=== PATIENT | female | born 1955 | race Caucasian/White ===

== ENCOUNTER 2016-04-13 11:29 | Emergency (ER) | payer BC ==
[~2016-04-13] VITALS: Ht 171.5 cm; Wt 82.5 kg
[~2016-04-13 11:29] MED LIST: MORP1TAB12 PO
[2016-04-13 11:36] VITALS: TEMP 37.1; Ht 171.5 cm; Wt 82.5 kg
--- NOTE | 2016-04-13 12:31 | EMERGENCY ROOM VISIT NOTE ---
History First contact with patient: 12:17 Chief Complaint: HEADACHE Stated Complaint: HEADACHE History of Present Illness The patient is a 60 year old female who presents to the Emergency Room with complaints of migraine. It started last night without preceding aura. Patient is on chronic pain medications, and has breakthrough pain medication, oxycodone for her headaches, but this only resolved her symptoms for ~30min. Currently she is experiencing throbbing in the occipital region radiating as a band tightening around her head and radiation of pain down the next and electrical pain shooting down her arms causing spasms. The right arm pain is worse than left. Her headaches is rated 9/10 severity currently. She is experiencing nausea but no vomiting. 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 Will repeat the therapy in 1 month The patient states that this headache is similar to her usual headaches. Review of Systems See HPI for pertinent positives and negatives. A total of ten systems were reviewed and were otherwise negative. Past Medical/Surgical History Medical Problems: (1) CHRONIC PAIN SYNDROME (2) HYPOTHYROIDISM NOS (3) MIGRAINE W AURA W/O INTRACT MGRN W/O STATUS MIGRAINOSUS Family History Diabetes mellitus Heart disease Hypertension Social History Smoking Status: Current Every Day Smoker Alcohol Use: none Drug Use: none Marital Status: Housing Status: lives alone Occupation Status: retired Current/Historical Medications Scheduled Estradiol (Estradiol), 1 PATCH TD WK Levothyroxine Sodium (Levothyroxine Sodium), 150 MCG PO QAM Morphine Sulfate (Morphine Sulfate Er), 30 MG PO TID Rosuvastatin Calcium (Crestor), 20 MG PO DAILY Varenicline (Chantix), 0.5 MG PO DAILY Venlafaxine Hcl (Effexor Extended Rel), 300 MG PO QAM Scheduled PRN Cyclobenzaprine Hcl (Flexeril), 5 MG PO HS PRN for Muscle Spasms Naproxen Sodium (Aleve), 440 MG PO DAILY PRN for Pain Oxycodone Hcl (Oxycodone Hcl), 7.5 MG PO Q3-4 HRS PRN for Breakthrough Pain Prednisone (Prednisone), 30-40 MG PO DAILY PRN for Headache Allergies Coded Allergies: No Known Allergies (Verified , 04/04/16) Physical Exam Vital Signs Date Time Temp Pulse Resp B/P Pulse Ox O2 Delivery O2 Flow Rate FiO2 04/13/16 13:33 98 18 153/83 94 04/13/16 11:36 37.1 98 18 153/83 94 Room Air Physical Exam GENERAL: alert, thin, sitting in bed, moderate acute distress, non-toxic HEAD: Normocephalic, atraumatic. Some sinus tenderness. EYES: PERRL, EOMI, normal conjunctiva OROPHARYNX: no exudate, no erythema, lips, buccal mucosa, and tongue normal and mucous membranes are dry NECK: supple, no nuchal rigidity, no adenopathy, non-tender LUNGS: Clear to auscultation. Normal chest wall mechanics, good air entry. No crepitations, crackles, or wheezes HEART: no murmurs, S1 normal and S2 normal CHEST: No reproducible tenderness. ABDOMEN: abdomen soft, non-tender, normo-active bowel sounds, no masses, no rebound or guarding. BACK: Back is symmetrical on inspection, no deformities, no midline tenderness, no CVA tenderness. SKIN: Warm, pink, dry. No erythema, rashes, or bruising. EXTREMITIES: Grossly normal. Moving all 4 limbs, strength 5/5. No pitting edema. Calves non tender. NEURO: Alert, Ox3. No focal deficits. Normal sensorium, cranial nerves II-XII grossly intact, normal speech. Kernig and Brudzinski negative PSYCH: Mood and affect appropriate. Medical Decision & Procedures Medications Administered Medications (Trade) Dose Ordered Sig/Aurora Route Start Time Stop Time Status Last Admin Dose Admin Morphine Sulfate (MoRPHine SULFATE INJ) 10 mg NOW STAT IM 04/13/16 12:40 04/13/16 12:51 DC 04/13/16 13:07 10 MG Dexamethasone Sodium Phosphate (Decadron Inj) 10 mg NOW STAT IM 04/13/16 12:40 04/13/16 12:51 DC 04/13/16 13:07 10 MG Ondansetron HCl (Zofran Odt) 4 mg ONE STAT PO 04/13/16 12:40 04/13/16 12:51 DC 04/13/16 13:08 4 MG Medical Decision 60 year old fe/male presented with acute headache, with symptoms consistent with her previous migraines The patient was evaluated in room A4. A complete history and physical exam was performed. Differentials include, but are not limited to; migraine, infection, intracranial hemorrhage, CVA, meningitis. She has a normal neurologic exam. She's had no fall or trauma. She has no fever or chills. She has nothing to suggest meningitis or encephalitis. She is not driving. I have reviewed her records and as such, patient was given usual regimen for symptom relief: morphine 10 mg IM, Decadron 10 mg IM and Zofran 4mg oral dissolving tablet She was discharged home and encouraged to return if: fever or chills, worsening symptoms, numbness or weakness, headaches different than normal, any new problems concerns. Impression Primary Impression: Chronic migraine Departure Information Referrals Britton Lopez M.D. (PCP) Patient Instructions A Signature Page, My [facility]
[2016-04-13] MEDS ORDERED: MoRPHine SULFATE 10 MG/ML CARP/VIAL IM STA (12:40)
[2016-04-13] MEDS ORDERED: ONDANSETRON 4MG OD TAB PO STA (12:40)
[2016-04-13] MEDS ORDERED: DEXAMETHASONE SOD INJ 10 MG/ML VIAL IM STA (12:40)
--- NOTE | 2016-04-13 13:21 | EMERGENCY ROOM VISIT NOTE ---
History Report prepared by Ryanne: Jaqui Sun Under the Supervision of: Dr. Tucker Cuello D.O. First contact with patient: 12:17 Chief Complaint: HEADACHE Stated Complaint: HEADACHE History of Present Illness The patient is a 60 year old female who presents to the Emergency Room with complaints of a constant occipital headache that started yesterday. She describes the headache as throbbing and states that it feels like her typical headaches. The pain radiates down into her neck and shoulders. She rates her discomfort as an 8/10 in severity. The patient is also experiencing nausea but denies vomiting along with aura, rhinorrhea, fevers, and numbness. She denies recent travel and recent trauma. The patient adds that she started Botox on March 31. Source of History: patient Onset: yesterday Position: head (occipital) Symptom Intensity: 8/10 Quality: other (throbbing) Timing: constant Associated Symptoms: + nausea, No fevers, No numbness, No vomiting Note: neck pain, shoulder pain, no aura, no rhinorrhea Review of Systems See HPI for pertinent positives & negatives. A total of 10 systems reviewed and were otherwise negative. Past Medical & Surgical Medical Problems: (1) CHRONIC PAIN SYNDROME (2) HYPOTHYROIDISM NOS (3) MIGRAINE W AURA W/O INTRACT MGRN W/O STATUS MIGRAINOSUS Family History Diabetes mellitus Heart disease Hypertension Social History Smoking Status: Current Every Day Smoker Alcohol Use: none Drug Use: none Marital Status: Housing Status: lives alone Occupation Status: retired Current/Historical Medications Scheduled Estradiol (Estradiol), 1 PATCH TD WK Levothyroxine Sodium (Levothyroxine Sodium), 150 MCG PO QAM Morphine Sulfate (Morphine Sulfate Er), 30 MG PO TID Rosuvastatin Calcium (Crestor), 20 MG PO DAILY Varenicline (Chantix), 0.5 MG PO DAILY Venlafaxine Hcl (Effexor Extended Rel), 300 MG PO QAM Scheduled PRN Cyclobenzaprine Hcl (Flexeril), 5 MG PO HS PRN for Muscle Spasms Naproxen Sodium (Aleve), 440 MG PO DAILY PRN for Pain Oxycodone Hcl (Oxycodone Hcl), 7.5 MG PO Q3-4 HRS PRN for Breakthrough Pain Prednisone (Prednisone), 30-40 MG PO DAILY PRN for Headache Allergies Coded Allergies: No Known Allergies (Verified , 04/04/16) Physical Exam Vital Signs Date Time Temp Pulse Resp B/P Pulse Ox O2 Delivery O2 Flow Rate FiO2 04/13/16 11:36 37.1 98 18 153/83 94 Room Air Physical Exam CONSTITUTIONAL/VITAL SIGNS: Reviewed / noted above. GENERAL: Non-toxic in appearance. INTEGUMENTARY: Warm, dry, and [place]. HEAD: Normocephalic. EYES: without scleral icterus or trauma. ENT/OROPHARYNX: clear and moist. LYMPHADENOPATHY/NECK: Is supple without lymphadenopathy or meningismus. RESPIRATORY: Lungs clear and equal. CARDIOVASCULAR: Regular rate and rhythm. GI/ABDOMEN: Soft and nontender. No organomegaly or pulsatile mass. No rebound or guarding. Normal bowel sounds. EXTREMITIES: Warm and well perfused. BACK: No CVA tenderness. NEUROLOGICAL: Intact without focal deficits. PSYCHIATRIC: normal affect. MUSCULOSKELETAL: Normally developed with good muscle tone. Medical Decision & Procedures Medications Administered Medications (Trade) Dose Ordered Sig/Aurora Route Start Time Stop Time Status Last Admin Dose Admin Morphine Sulfate (MoRPHine SULFATE INJ) 10 mg NOW STAT IM 04/13/16 12:40 04/13/16 12:51 DC 04/13/16 13:07 10 MG Dexamethasone Sodium Phosphate (Decadron Inj) 10 mg NOW STAT IM 04/13/16 12:40 04/13/16 12:51 DC 04/13/16 13:07 10 MG Ondansetron HCl (Zofran Odt) 4 mg ONE STAT PO 04/13/16 12:40 04/13/16 12:51 DC 04/13/16 13:08 4 MG ED Course 1220: The medical accounting clerk evaluated the patient at this time. We discussed her findings and potential treatment plans. 1240: Previous medical records were reviewed. The patient was evaluated in room A4. A complete history and physical examination was performed. 1305: On the resident's reevaluation, the patient is doing well. She discussed the results and findings with the patient. The patient verbalized agreement of the treatment plan. The patient was discharged home. Medical Decision Differential includes migraine headache, meningitis, sinusitis, CO exposure, ICH , SAH, infection, tumor, headache, sinus thrombosis, arterial dissection. This is a 60-year-old female who presents to the ED with his usual migraine headache. The patient denies any fevers or recent trauma. She was treated with her usual treatment as noted with morphine, Decadron and Zofran IM.. She was seen with resident. She is felt to be stable for discharge. Impression Primary Impression: Headache Scribe Attestation The scribe's documentation has been prepared under my direction and personally reviewed by me in its entirety. I confirm that the note above accurately reflects all work, treatment, procedures, and medical decision making performed by me. Departure Information Dispostion Home / Self-Care Referrals Britton Lopez M.D. (PCP) Forms HOME CARE DOCUMENTATION FORM, IMPORTANT VISIT INFORMATION Patient Instructions A Signature Page, My [facility]
[2016-04-13 13:33] VITALS: BP 153/83; PULSE 98; O2SAT 94
[2016-12-23] MEDS ORDERED: NAPR1TAB48 PO (10:34)
== END 2016-04-13 13:33 | disposition home or self-care (01) ==
LOC: C.EDB 11:30 → C.EDA 13:33
DX: G43.909 Migraine, unspecified, not intractable, without status migrainosus (principal); E03.9 Hypothyroidism, unspecified; F17.210 Nicotine dependence, cigarettes, uncomplicated; Z79.899 Other long term (current) drug therapy

== ENCOUNTER 2016-05-18 13:25 | Emergency (ER) | payer BC ==
[~2016-05-18] VITALS: Ht 172.7 cm; Wt 82.3 kg
[2016-05-18 13:30] VITALS: TEMP 36.5; Ht 172.7 cm; Wt 82.3 kg
[2016-05-18] MEDS ORDERED: CLMTP5 TD (13:49)
[2016-05-18] MEDS ORDERED: LEVO150T9 PO (13:49)
[2016-05-18] MEDS ORDERED: PRED20TA PO (13:50)
[2016-05-18] MEDS ORDERED: OXY/15 PO (13:50)
[2016-05-18] MEDS ORDERED: EFFSR150 PO (13:50)
[2016-05-18] MEDS ORDERED: NAPR1CAP12 PO (13:50)
[2016-05-18] MEDS ORDERED: CHN/1 PO (13:50)
[2016-05-18] MEDS ORDERED: MoRPHine SULFATE 10 MG/ML CARP/VIAL IM STA (13:53)
[2016-05-18] MEDS ORDERED: ONDANSETRON 4MG OD TAB PO STA (13:53)
[2016-05-18] MEDS ORDERED: DEXAMETHASONE SOD INJ 10 MG/ML VIAL IM ONE (14:00)
[2016-05-18 14:39] VITALS: BP 130/62; PULSE 76; O2SAT 96
[2016-05-18] MEDS ORDERED: ROSU20TA PO (14:57)
[2016-05-18] MEDS ORDERED: CYCL5TAB PO (14:57)
--- NOTE | 2016-05-18 20:09 | EMERGENCY ROOM VISIT NOTE ---
History Report prepared by Ryanne: Yoana Bautista Under the Supervision of: Dr. Ernesto Taylor M.D. First contact with patient: 13:45 Chief Complaint: HEADACHE Stated Complaint: MIGRAINE TIMES TWO DAYS History of Present Illness The patient is a 61 year old female who presents to the Emergency Room with complaints of a persistent migraine headache that began 2 days ago. The pain is located in the occipital region and is vice like. It extends down her arms. She also complains of nausea. She denies any sensitivity to smells, noise, or light. The patient has a history of migraine headaches. Her current pain feels typical of her migraine headaches. The patient received Botox On March 31 for her migraines which did seem to help her migraines, although she can tell that it is wearing off and is scheduled for another injection in June. She denies any recent head trauma. Denies chest pain, shortness of breath, vomiting , abdominal pain, or other complaints. Source of History: patient Onset: 2 days ago Position: head (occipital) Quality: other (migraine) Timing: other (persistent) Associated Symptoms: + nausea, No SOB, No abdominal pain, No chest pain, No vomiting Review of Systems See HPI for pertinent positives & negatives. A total of 10 systems reviewed and were otherwise negative. Past Medical & Surgical Medical Problems: (1) CHRONIC PAIN SYNDROME (2) HYPOTHYROIDISM NOS (3) MIGRAINE W AURA W/O INTRACT MGRN W/O STATUS MIGRAINOSUS Family History Diabetes mellitus Heart disease Hypertension Social History Smoking Status: Current Every Day Smoker Alcohol Use: none Drug Use: none Marital Status: Housing Status: lives alone Occupation Status: retired Current/Historical Medications Scheduled Estradiol (Estradiol), 1 PATCH TD WK Levothyroxine Sodium (Levothyroxine Sodium), 150 MCG PO QAM Morphine Sulfate (Morphine Sulfate Er), 30 MG PO TID Rosuvastatin Calcium (Crestor), 20 MG PO DAILY Varenicline (Chantix), 0.5 MG PO DAILY Venlafaxine Hcl (Effexor Extended Rel), 300 MG PO QAM Scheduled PRN Cyclobenzaprine Hcl (Flexeril), 5 MG PO HS PRN for Muscle Spasms Naproxen Sodium (Aleve), 440 MG PO DAILY PRN for Pain Oxycodone Hcl (Oxycodone Hcl), 7.5 MG PO Q3-4 HRS PRN for Breakthrough Pain Prednisone (Prednisone), 30-40 MG PO DAILY PRN for Headache Allergies Coded Allergies: No Known Allergies (Verified , 05/18/16) Physical Exam Vital Signs Date Time Temp Pulse Resp B/P Pulse Ox O2 Delivery O2 Flow Rate FiO2 05/18/16 14:39 76 20 130/62 96 05/18/16 13:30 36.5 93 18 128/79 95 Room Air Physical Exam Constitutional: Vital signs reviewed. Eyes: Pupils are equal round reactive to light. Conjunctiva are noninjected. ENT: Pharynx is clear without erythema or exudate. Mucous membranes are moist. Neck supple without meningeal signs. Respiratory: Clear to auscultation bilaterally. Breath sounds are equal bilaterally. Cardiovascular: Regular rate and rhythm. No rubs or gallops. GI: Soft, nondistended and nontender. Bowel sounds are present. Musculoskeletal: No peripheral edema. Integumentary: No cyanosis. Neurological: The patient is awake and alert. Cranial nerves II-XII are intact. Motor is 5 out of 5 all extremities. Sensation is intact to light touch all extremities. Normal speech. No pronator drift. Psychiatric: Normal affect. Medical Decision & Procedures Medications Administered Medications (Trade) Dose Ordered Sig/Aurora Route Start Time Stop Time Status Last Admin Dose Admin Morphine Sulfate (MoRPHine SULFATE INJ) 10 mg NOW STAT IM 05/18/16 13:53 05/18/16 13:55 DC 05/18/16 14:15 10 MG Dexamethasone Sodium Phosphate (Decadron Inj) 10 mg NOW ONCE IM 05/18/16 14:00 05/18/16 14:01 DC 05/18/16 14:16 10 MG Ondansetron HCl (Zofran Odt) 4 mg ONE STAT PO 05/18/16 13:53 05/18/16 13:55 DC 05/18/16 13:53 4 MG ED Course 1345: The patient was evaluated in room D2. A complete history and physical exam was performed. She requested to be discharged immediately after receiving her medications. 1353: Ordered Zofran Odt 4 mg PO, Morphine Sulfate 10 mg IM. 1400: Ordered Decadron Inj 10 mg IM. Medical Decision This is a 61-year-old female who presents with a migraine headache. I did perform a limited focused review of portions of the patient's old chart on the electronic medical record. She was last here April 13 for a headache and treated with Morphine, Decadron, and Zofran. I did evaluate the patient as noted above. The patient is presenting with a headache which she states is identical to her previous migraine headaches. She has not febrile. She has no focal neurologic deficits. She was treated with IM morphine, Decadron and given Zofran ODT. She did wish to be discharged afterwards and will follow up with her doctor. She was given return instructions as outlined below. Impression Primary Impression: Headache Scribe Attestation The scribe's documentation has been prepared under my direct and personally reviewed by me in its entirety. I confirm that the note above accurately reflects all work, treatment, procedures, and medical decision making performed by me. Departure Information Dispostion Home / Self-Care Referrals Britton Lopez M.D. (PCP) Patient Instructions ED Headache Migraine, [facility] Additional Instructions You have been examined and treated today on an emergency basis only. This is not a substitute for, or an effort to provide, complete comprehensive medical care. It is impossible to recognize and treat all injuries or illnesses in a single emergency department visit. It is therefore important that you follow up closely with your physician. Call as soon as possible for an appointment. Return for worsening symptoms or if you develop fever, numbness or weakness on one side of your body, difficulties with your speech or walking, or any other concerning symptoms. Problem Qualifiers Primary Impression: Headache Headache type: unspecified Headache chronicity pattern: acute headache Intractability: not intractable Qualified Codes: R51 - Headache
== END 2016-05-18 14:40 | disposition home or self-care (01) ==
LOC: C.EDB 13:27 → C.EDD 14:40
DX: R51 Headache (principal); G89.4 Chronic pain syndrome; E03.9 Hypothyroidism, unspecified; Z83.3 Family history of diabetes mellitus; Z82.49 Family history of ischemic heart disease and other diseases of the circulatory system

== ENCOUNTER 2016-06-06 09:05 | Emergency (ER) | payer BC ==
[~2016-06-06] VITALS: Ht 172.7 cm; Wt 84.1 kg
[~2016-06-06 09:05] MED LIST changes: +CHN/1 PO; +CLMTP5 TD; +CYCL5TAB PO; +EFFSR150 PO; +LEVO150T9 PO; +NAPR1CAP12 PO; +OXY/15 PO; +PRED20TA PO; +ROSU20TA PO
[2016-06-06 09:18] VITALS: TEMP 37; Ht 172.7 cm; Wt 84.1 kg
[2016-06-06] MEDS ORDERED: MoRPHine SULFATE 10 MG/ML CARP/VIAL IM STA (10:00)
[2016-06-06] MEDS ORDERED: DEXAMETHASONE SOD INJ 10 MG/ML VIAL IM ONE (10:00)
[2016-06-06] MEDS ORDERED: ONDANSETRON 4MG OD TAB PO STA (10:00)
[2016-06-06 11:16] VITALS: BP 146/87; PULSE 76; O2SAT 98
--- NOTE | 2016-06-06 15:15 | EMERGENCY ROOM VISIT NOTE ---
History Report prepared by Ryanne: Soniya Barros Under the Supervision of: Dr. Kishan Nevarez M.D. 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 The patient currently rates her pain as an 8/10 in severity. The patient states that she has recurrent headaches. She states that the headaches are occipital but they radiate down into her arms. She states the headaches are due to past neck trauma. She associates nausea with her symptoms. She denies any sensitivity to light, vomiting, or fevers with her symptoms. She states that she has taken prednisone for the last 3 days. The patient states that she had Botox done to treat her headaches and it helped her pain for several weeks but she is not able to receive another treatment fo awhile. Source of History: patient Onset: 2 days BUSINESS ECONOMIST Position: head Symptom Intensity: 8/10 Timing: other (persistent) Associated Symptoms: + nausea, No fevers, No vomiting Note: Patient denies sensitivity to light Review of Systems See HPI for pertinent positives & negatives. A total of 10 systems reviewed and were otherwise negative. Past Medical & Surgical Medical Problems: (1) CHRONIC PAIN SYNDROME (2) HYPOTHYROIDISM NOS (3) MIGRAINE W AURA W/O INTRACT MGRN W/O STATUS MIGRAINOSUS Family History Diabetes mellitus Heart disease Hypertension Social History Smoking Status: Current Every Day Smoker Alcohol Use: none Drug Use: none Marital Status: Housing Status: lives alone Occupation Status: retired Current/Historical Medications Scheduled Estradiol (Estradiol), 1 PATCH TD WK Levothyroxine Sodium (Levothyroxine Sodium), 150 MCG PO QAM Morphine Sulfate (Morphine Sulfate Er), 30 MG PO TID Rosuvastatin Calcium (Crestor), 20 MG PO DAILY Varenicline (Chantix), 0.5 MG PO DAILY Venlafaxine Hcl (Effexor Extended Rel), 300 MG PO QAM Scheduled PRN Cyclobenzaprine Hcl (Flexeril), 5 MG PO HS PRN for Muscle Spasms Naproxen Sodium (Aleve), 440 MG PO DAILY PRN for Pain Oxycodone Hcl (Oxycodone Hcl), 7.5 MG PO Q3-4 HRS PRN for Breakthrough Pain Prednisone (Prednisone), 30-40 MG PO DAILY PRN for Headache Allergies Coded Allergies: No Known Allergies (Verified , 06/06/16) Physical Exam Vital Signs Date Time Temp Pulse Resp B/P Pulse Ox O2 Delivery O2 Flow Rate FiO2 06/06/16 11:16 76 16 146/87 98 06/06/16 09:18 37.0 92 17 143/81 96 Room Air Physical Exam GENERAL: Patient is in no acute distress. HEENT: No acute trauma, normocephalic atraumatic, mucous membranes moist, no nasal congestion, no scleral icterus. Pupils equal and reactive to light. NECK: No stridor, no adenopathy, no meningismus, trachea is midline. LUNGS: Clear to auscultation bilaterally, no wheeze, no rhonchi, breath sounds equal. HEART: Without murmurs gallops or rubs, regular rate and rhythm. ABDOMEN: Soft, nontender, bowel sounds positive, no hernias, no peritonitis. EXTREMITIES: No cyanosis or edema, full range of motion of all the joints without pain or difficulty, no signs for acute trauma. NEUROLOGIC: Oriented x 3, no acute motor or sensory deficits, no focal weakness. No cerebellar deficits. SKIN: No rash, no jaundice, no diaphoresis Medical Decision & Procedures Medications Administered Medications (Trade) Dose Ordered Sig/Aurora Route Start Time Stop Time Status Last Admin Dose Admin Morphine Sulfate (MoRPHine SULFATE INJ) 10 mg NOW STAT IM 06/06/16 10:00 06/06/16 10:02 DC 06/06/16 11:02 10 MG Ondansetron HCl (Zofran Odt) 4 mg NOW STAT PO 06/06/16 10:00 06/06/16 10:02 DC 06/06/16 11:02 4 MG Dexamethasone Sodium Phosphate (Decadron Inj) 10 mg NOW ONCE IM 06/06/16 10:00 06/06/16 10:02 DC 06/06/16 11:02 10 MG ED Course 0958: The patient was evaluated in room C4. A complete history and physical exam was performed. 1000: Ordered Decadron Inj 10 mg IM, Zofran Odt 4 mg PO, Morphine Sulfate 10 mg IM. 1110: Reevaluated the patient. Discussed results and discharge instructions: She verbalized understanding and agreement. The patient is ready for discharge. Medical Decision The patient is a 61 year old female who presents to the ED with complaints of a headache. Differential diagnoses considered include migraine headache, tension headache, meningitis, dehydration, head trauma, intracranial bleeding, neuralgia. The patient presents with a headache that she describes as typical for her. She has these posterior headaches that are from her chronic neck pain. The patient has been seen in this ER before for similar complaints. She has not suffered head trauma, there has been no fever. On exam, she is not febrile and there is no meningismus. Patient received IM morphine, IM Decadron and oral Zofran. She has received this in the past with success. She was discharged home. Rest and hydration were encouraged. Impression Primary Impression: Headache Scribe Attestation The scribe's documentation has been prepared under my direction and personally reviewed by me in its entirety. I confirm that the note above accurately reflects all work, treatment, procedures, and medical decision making performed by me. Departure Information Dispostion Home / Self-Care Referrals Britton Lopez M.D. (PCP) Forms HOME CARE DOCUMENTATION FORM, IMPORTANT VISIT INFORMATION Patient Instructions My [facility] Additional Instructions rest fluids sleep return if worsening
== END 2016-06-06 11:17 | disposition home or self-care (01) ==
LOC: C.EDB 09:06 → C.EDC 11:17
DX: R51 Headache (principal); R11.0 Nausea; E03.9 Hypothyroidism, unspecified; F17.210 Nicotine dependence, cigarettes, uncomplicated; Z79.899 Other long term (current) drug therapy

== ENCOUNTER 2016-06-22 16:47 | Emergency (ER) | payer BC ==
[~2016-06-22] VITALS: Ht 172.7 cm; Wt 83.8 kg
[2016-06-22 17:05] VITALS: TEMP 37.1; Ht 172.7 cm; Wt 83.8 kg
[2016-06-22] MEDS ORDERED: MoRPHine SULFATE 10 MG/ML CARP/VIAL IM STA (18:09)
--- NOTE | 2016-06-22 18:13 | EMERGENCY ROOM VISIT NOTE ---
ED Visit Note First contact with patient: 17:32 CHIEF COMPLAINT: Migraine headache HISTORY OF PRESENT ILLNESS: This 61-year-old female patient presented to the emergency department ambulatory with a gradual onset of a severe generalized headache that started yesterday. The patient states the migraine is similar to their typical migraines. She states that she typically has migraines with any changes in the barometric pressure. There has been associated photophobia, phonophobia, nausea and vomiting. The patient denies fever or chills recently, and there is no weakness or numbness of the extremities. There is no difficulty with speech or vision. No trauma to the head and no neck pain. The pain is severe, constant, and it is slowly increasing in severity. The patient rates the pain as throbbing and 9/10. The patient has taken oxycodone without relief. This is not the worst headache of the life and is similar to previous migraines. Previous imaging studies of the brain have been normal. REVIEW OF SYSTEMS: A review of systems was performed with positives and pertinent negatives listed in the history of present illness. All other systems were reviewed and are negative. ALLERGIES: No known drug allergies MEDICATIONS: See med list PMH: Migraine headaches SOCIAL HISTORY: The patient lives locally with family. PHYSICAL EXAM: Vital Signs: Reviewed Nurse's notes, vital signs stable. GENERAL : This is a 61-year-old female, who appears in pain, but non toxic in appearance and in no acute distress. MENTAL STATUS: Alert, oriented, and coherent. HEENT: Normocephalic. PERRLA. EOMI. Nares patent without nuchal rigidity. Tympanic membranes pearly carr without erythema or effusion bilaterally. Mucous membranes moist. NECK: Supple, no nuchal rigidity, nontender, no lymphadenopathy. HEART: Regular rhythm and normal rate without murmurs, ectopy, gallops, or rubs. LUNGS: Clear to auscultation bilaterally without wheezes, rales or rhonchi. No dullness to percussion. No accessory muscle use. No retractions. SKIN: Normal. NEUROLOGICAL: Pupils are round, equal and react to light. The optic fundi are normal and the discs are flat. The patient moves all extremities well and the gait is normal. EMERGENCY DEPARTMENT COURSE: I examined the patient. The patient has a history of migraines and states this is similar to her typical migraine headache. The patient was given 10 mg morphine, 4 mg Zofran and 10 mg Decadron per their usual protocol. The differential diagnosis includes acute intracranial bleed, meningitis, encephalitis, mass or mass effect, sinusitis, infection, tumor, headache, temporal arteritis and carbon monoxide exposure, and migraine. The patient was discharged home in stable condition with her driving. DIAGNOSIS: Migraine headache Problem List Medical Problems: (1) CHRONIC PAIN SYNDROME Status: Chronic (2) HYPOTHYROIDISM NOS Status: Chronic (3) MIGRAINE W AURA W/O INTRACT MGRN W/O STATUS MIGRAINOSUS Status: Chronic Current/Historical Medications Scheduled Estradiol (Estradiol), 1 PATCH TD WK Levothyroxine Sodium (Levothyroxine Sodium), 150 MCG PO QAM Morphine Sulfate (Morphine Sulfate Er), 30 MG PO TID Rosuvastatin Calcium (Crestor), 20 MG PO DAILY Varenicline (Chantix), 0.5 MG PO DAILY Venlafaxine Hcl (Effexor Extended Rel), 300 MG PO QAM Scheduled PRN Cyclobenzaprine Hcl (Flexeril), 5 MG PO HS PRN for Muscle Spasms Naproxen Sodium (Aleve), 440 MG PO DAILY PRN for Pain Oxycodone Hcl (Oxycodone Hcl), 7.5 MG PO Q3-4 HRS PRN for Breakthrough Pain Prednisone (Prednisone), 30-40 MG PO DAILY PRN for Headache Allergies Coded Allergies: No Known Allergies (Verified , 06/06/16) Vital Signs Date Time Temp Pulse Resp B/P Pulse Ox O2 Delivery O2 Flow Rate FiO2 06/22/16 18:48 80 18 132/54 94 06/22/16 17:05 37.1 95 16 133/80 99 Room Air Medications Administered Medications (Trade) Dose Ordered Sig/Aurora Route Start Time Stop Time Status Last Admin Dose Admin Morphine Sulfate (MoRPHine SULFATE INJ) 10 mg NOW STAT IM 06/22/16 18:09 06/22/16 18:11 DC 06/22/16 18:43 10 MG Dexamethasone Sodium Phosphate (Decadron Inj) 10 mg NOW ONCE IM 06/22/16 18:15 06/22/16 18:16 DC 06/22/16 18:45 10 MG Ondansetron HCl (Zofran Odt) 4 mg ONE ONCE PO 06/22/16 18:15 06/22/16 18:16 DC 06/22/16 18:43 4 MG Departure Information Impression Primary Impression: Migraine Dispostion Home / Self-Care Condition GOOD Referrals Britton Lopez M.D. (PCP) Patient Instructions My [facility] Additional Instructions You have been treated in the Emergency Department for a Headache. You have received pain medicine in the emergency department which impairs your ability to operate a vehicle. It is illegal for you to drive after receiving these medicines. You should schedule a follow-up appointment in 2-3 days with your Primary Care Provider or established Neurologist for further evaluation and treatment of your Headache. Return to the Emergency Department if your current symptoms worsen despite treatment course outlined above, or if you develop any of the following symptoms : intractable pain despite aforementioned treatment course, visual disturbances , loss of vision, unilateral weakness or facial drooping, slurring of speech, loss of coordination, or loss of consciousness. Problem Qualifiers Primary Impression: Migraine Migraine type: unspecified Status migrainosus presence: without status migrainosus Intractability: not intractable Qualified Codes: G43.909 - Migraine, unspecified, not intractable, without status migrainosus
[2016-06-22] MEDS ORDERED: DEXAMETHASONE SOD INJ 4 MG/ML VIAL IM ONE (18:15)
[2016-06-22] MEDS ORDERED: ONDANSETRON 4MG OD TAB PO ONE (18:15)
--- NOTE | 2016-06-22 18:26 | EMERGENCY ROOM VISIT NOTE ---
ED Visit Note First contact with patient: 17:32 I have seen and examined this patient with Lizzeth Moreno and generally agree with the treatment plan as discussed. Problem List Medical Problems: (1) CHRONIC PAIN SYNDROME Status: Chronic (2) HYPOTHYROIDISM NOS Status: Chronic (3) MIGRAINE W AURA W/O INTRACT MGRN W/O STATUS MIGRAINOSUS Status: Chronic Current/Historical Medications Scheduled Estradiol (Estradiol), 1 PATCH TD WK Levothyroxine Sodium (Levothyroxine Sodium), 150 MCG PO QAM Morphine Sulfate (Morphine Sulfate Er), 30 MG PO TID Rosuvastatin Calcium (Crestor), 20 MG PO DAILY Varenicline (Chantix), 0.5 MG PO DAILY Venlafaxine Hcl (Effexor Extended Rel), 300 MG PO QAM Scheduled PRN Cyclobenzaprine Hcl (Flexeril), 5 MG PO HS PRN for Muscle Spasms Naproxen Sodium (Aleve), 440 MG PO DAILY PRN for Pain Oxycodone Hcl (Oxycodone Hcl), 7.5 MG PO Q3-4 HRS PRN for Breakthrough Pain Prednisone (Prednisone), 30-40 MG PO DAILY PRN for Headache Allergies Coded Allergies: No Known Allergies (Verified , 06/06/16) Vital Signs Date Time Temp Pulse Resp B/P Pulse Ox O2 Delivery O2 Flow Rate FiO2 06/22/16 17:05 37.1 95 16 133/80 99 Room Air Departure Information Dispostion Home / Self-Care Condition GOOD Referrals Britton Lopez M.D. (PCP) Forms HOME CARE DOCUMENTATION FORM, IMPORTANT VISIT INFORMATION Patient Instructions My [facility] Additional Instructions You have been treated in the Emergency Department for a Headache. You have received pain medicine in the emergency department which impairs your ability to operate a vehicle. It is illegal for you to drive after receiving these medicines. You should schedule a follow-up appointment in 2-3 days with your Primary Care Provider or established Neurologist for further evaluation and treatment of your Headache. Return to the Emergency Department if your current symptoms worsen despite treatment course outlined above, or if you develop any of the following symptoms : intractable pain despite aforementioned treatment course, visual disturbances , loss of vision, unilateral weakness or facial drooping, slurring of speech, loss of coordination, or loss of consciousness.
[2016-06-22 18:48] VITALS: BP 132/54; PULSE 80; O2SAT 94
== END 2016-06-22 18:49 | disposition home or self-care (01) ==
LOC: C.EDB 16:48 → C.EDD 18:49
DX: G43.909 Migraine, unspecified, not intractable, without status migrainosus (principal); E03.9 Hypothyroidism, unspecified; G89.4 Chronic pain syndrome; Z79.899 Other long term (current) drug therapy

== ENCOUNTER 2016-07-05 12:04 | Emergency (ER) | payer BC ==
[~2016-07-05] VITALS: Ht 172.7 cm; Wt 83.6 kg
[2016-07-05 12:11] VITALS: TEMP 36.9; Ht 172.7 cm; Wt 83.6 kg
[2016-07-05] MEDS ORDERED: ONDANSETRON 2MG ODT PO STA (12:35)
[2016-07-05] MEDS ORDERED: MoRPHine SULFATE 10 MG/ML CARP/VIAL IM STA (12:35)
[2016-07-05] MEDS ORDERED: DEXAMETHASONE SOD INJ 10 MG/ML VIAL IM STA (12:35)
--- NOTE | 2016-07-05 12:36 | EMERGENCY ROOM VISIT NOTE ---
History Report prepared by Ryanne: Camille Gómez Under the Supervision of: Dr. Mohamud Lee M.D. First contact with patient: 12:18 Chief Complaint: HEADACHE Stated Complaint: HEADACHE FOR 3 DAYS History of Present Illness The patient is a 61 year old female who presents to the Emergency Room with complaints of a persistent headache with onset three days ago. She rates her pain as an 8/10. The patient has a history of migraines and states that this headache is consistent with her usual migraines. The patient states that the change in weather has caused her migraine, as it usually does. The pain is occipital and is vice-like and goes down into her arms. The patient states that she is trying Botox for treatment of her migraines. She denies fever, visual changes. Source of History: patient Onset: 3 days ago Position: head Symptom Intensity: 8/10 Quality: other (headache) Timing: other (persistent) Associated Symptoms: No fevers Note: She denies visual changes. Review of Systems See HPI for pertinent positives & negatives. A total of 10 systems reviewed and were otherwise negative. Past Medical & Surgical Medical Problems: (1) CHRONIC PAIN SYNDROME (2) HYPOTHYROIDISM NOS (3) MIGRAINE W AURA W/O INTRACT MGRN W/O STATUS MIGRAINOSUS Old medical records were reviewed. Nurse's notes were reviewed and I agree with. Family History Diabetes mellitus Heart disease Hypertension Social History Smoking Status: Current Every Day Smoker Alcohol Use: none Drug Use: none Marital Status: Housing Status: lives alone Occupation Status: retired Current/Historical Medications Scheduled Estradiol (Estradiol), 1 PATCH TD WK Levothyroxine Sodium (Levothyroxine Sodium), 150 MCG PO QAM Morphine Sulfate (Morphine Sulfate Er), 30 MG PO TID Rosuvastatin Calcium (Crestor), 20 MG PO DAILY Varenicline (Chantix), 0.5 MG PO DAILY Venlafaxine Hcl (Effexor Extended Rel), 300 MG PO QAM Scheduled PRN Cyclobenzaprine Hcl (Flexeril), 5 MG PO HS PRN for Muscle Spasms Naproxen Sodium (Aleve), 440 MG PO DAILY PRN for Pain Oxycodone Hcl (Oxycodone Hcl), 7.5 MG PO Q3-4 HRS PRN for Breakthrough Pain Prednisone (Prednisone), 30-40 MG PO DAILY PRN for Headache Allergies Coded Allergies: No Known Allergies (Verified , 07/05/16) Physical Exam Vital Signs Date Time Temp Pulse Resp B/P Pulse Ox O2 Delivery O2 Flow Rate FiO2 07/05/16 12:54 102 18 154/85 95 07/05/16 12:11 36.9 107 18 139/86 95 Room Air Physical Exam General: Non ill appearing middle age female in no acute distress. HEENT: Normal cephalic atraumatic. Pupils are equal round and reactive to light. Extraocular movements are intact. Oropharynx is pink with moist mucous membranes. No swelling of the mouth lips or tongue. Neck: Supple with a midline trachea. No meningeal signs or stiffness, no JVD or bruits. No Stridor. Chest: Clear to auscultation bilaterally. No wheezes or rhonchi. No increased work of breathing. Heart: regular rate and rhythm. Abdomen: Soft nontender, nondistended without rebound guarding or rigidity. Extremities: No cyanosis clubbing or edema. No calf tenderness or assymetry Spine/Back. Non tender to palpation. No CVA tenderness Skin: Good turgor without rashes. Neurologic exam: Cranial nerves two through 12 are intact. Motor and sensation are intact and symmetrical throughout. Medical Decision & Procedures Medications Administered Medications (Trade) Dose Ordered Sig/Aurora Route Start Time Stop Time Status Last Admin Dose Admin Dexamethasone Sodium Phosphate (Decadron Inj) 10 mg NOW STAT IM 07/05/16 12:35 07/05/16 12:38 DC 07/05/16 12:40 10 MG Morphine Sulfate (MoRPHine SULFATE INJ) 10 mg NOW STAT IM 07/05/16 12:35 07/05/16 12:38 DC 07/05/16 12:41 10 MG Ondansetron HCl (Zofran Odt) 4 mg NOW STAT PO 07/05/16 12:35 07/05/16 12:38 DC 07/05/16 12:41 4 MG ED Course 1222: Past medical records reviewed. The patient was evaluated in room D6, and a complete history and physical examination were performed. 1235: Zofran 4 mg PO, Morphine Sulfate 10 mg IM, Decadron 10 mg IM 1250: Upon reevaluation, the patient is feeling better. I discussed the results and treatment plan with the patient. She verbalized agreement of the treatment plan. The patient was discharged home. Medical Decision Differentials include, but are not limited to; migraine, intracranial process, electrolyte or metabolic abnormality. This patient comes in as described above. She is having a headache consistent with her previous migraines. I do know her well from previous visits. She has a normal neurologic exam. She has had no trauma . She is afebrile. She has nothing to suggest this is anything but her typical migraine, specifically there is nothing to suggest meningitis, subarachnoid hemorrhage or toxicologic process. She is not driving. I did give her her typical shot which includes morphine 10 mg IM, Decadron 10 mg, IM as well as Zofran 4 mg oral dissolving tablet. She will be discharged home and return if: Worsening symptoms, headache different then typical, any new problems or concerns. Impression Primary Impression: Migraine Scribe Attestation The scribe's documentation has been prepared under my direction and personally reviewed by me in its entirety. I confirm that the note above accurately reflects all work, treatment, procedures, and medical decision making performed by me. Departure Information Dispostion Home / Self-Care Referrals Britton Lopez M.D. (PCP) Forms HOME CARE DOCUMENTATION FORM, IMPORTANT VISIT INFORMATION Patient Instructions My [facility] Additional Instructions Rest. Return if: Headaches different than typical, worsening of symptoms, fever or chills, numbness or weakness, any new problems or concerns Follow-up with your doctor this week for recheck
[2016-07-05 12:54] VITALS: BP 154/85; PULSE 102; O2SAT 95
== END 2016-07-05 12:55 | disposition home or self-care (01) ==
LOC: C.EDB 12:05 → C.EDD 12:55
DX: G43.909 Migraine, unspecified, not intractable, without status migrainosus (principal); G89.4 Chronic pain syndrome; E03.9 Hypothyroidism, unspecified; F17.200 Nicotine dependence, unspecified, uncomplicated; Z83.3 Family history of diabetes mellitus; Z82.49 Family history of ischemic heart disease and other diseases of the circulatory system

== ENCOUNTER 2016-08-09 09:28 | Emergency (ER) | payer BC ==
[~2016-08-09] VITALS: Ht 172.7 cm; Wt 81.6 kg
[2016-08-09 09:45] VITALS: TEMP 36.8; Ht 172.7 cm; Wt 81.6 kg
[2016-08-09] MEDS ORDERED: MoRPHine SULFATE 10 MG/ML CARP/VIAL IM STA (09:55)
--- NOTE | 2016-08-09 09:58 | EMERGENCY ROOM VISIT NOTE ---
ED Visit Note First contact with patient: 09:49 CHIEF COMPLAINT: Migraine headache HISTORY OF PRESENT ILLNESS: This 61-year-old female patient presented to the emergency department with a gradual onset of a severe generalized headache that started 3 days ago. There has been associated photophobia, phonophobia, nausea and vomiting. The patient denies fever or chills recently, and there is no weakness or numbness of the extremities. There is no difficulty with speech or vision. No trauma to the head and no neck pain. The pain is severe, constant, and it is slowly increasing in severity. The patient rates the pain as sharp and 8/10. The patient has taken her usual medications. This is not the worst headache of the life and is similar to previous migraines. Previous imaging studies of the brain (CT scans) have been normal. The patient states she is doing well with Botox injections. REVIEW OF SYSTEMS: An 8 system review of systems was completed with positives and pertinent negatives listed in the HPI. ALLERGIES: No known drug allergies MEDICATIONS: Unchanged from previous PMH: Migraines, hypothyroidism, hyperlipidemia SOCIAL HISTORY: The patient lives locally. She is a smoker PHYSICAL EXAM: Vital Signs: Reviewed Nurse's notes, vital signs stable. MENTAL STATUS: Alert, oriented, and coherent. In great distress from the headache. NECK : Supple, no nuchal rigidity, nontender, no lymphadenopathy. HEART: Regular rhythm and normal rate without murmurs, ectopy, gallops, or rubs. SKIN: Normal. NEUROLOGICAL: Pupils are round, equal and react to light. The optic fundi are normal and the discs are flat. EOMs are full and there is no nystagmus. The patient moves all extremities well and the gait is normal. EMERGENCY DEPARTMENT COURSE: I examined the patient. The patient is well-known to the emergency department. She is on a 2 shot per month treatment protocol. This is her first visit for this month. The patient was given 10 mg IM morphine , 10 mg IM Decadron and 4 mg oral Zofran with relief of their pain. The differential diagnosis includes acute intracranial bleed, meningitis, encephalitis, mass or mass effect, sinusitis, infection, tumor, headache, temporal arteritis and carbon monoxide exposure, and migraine. 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 DIAGNOSIS: Migraine headache DISCHARGE INSTRUCTIONS & TREATMENT: Rest at home, resume prescription medications. See your own doctor in follow-up. Problem List Medical Problems: (1) CHRONIC PAIN SYNDROME Status: Chronic (2) HYPOTHYROIDISM NOS Status: Chronic (3) MIGRAINE W AURA W/O INTRACT MGRN W/O STATUS MIGRAINOSUS Status: Chronic Current/Historical Medications Scheduled Estradiol (Estradiol), 1 PATCH TD WK Levothyroxine Sodium (Levothyroxine Sodium), 150 MCG PO QAM Morphine Sulfate (Morphine Sulfate Er), 30 MG PO TID Rosuvastatin Calcium (Crestor), 20 MG PO DAILY Venlafaxine Hcl (Effexor Extended Rel), 300 MG PO QAM Scheduled PRN Cyclobenzaprine Hcl (Flexeril), 5 MG PO HS PRN for Muscle Spasms Oxycodone Hcl (Oxycodone Hcl), 7.5 MG PO Q3-4 HRS PRN for Breakthrough Pain Allergies Coded Allergies: No Known Allergies (Verified , 08/09/16) Vital Signs Date Time Temp Pulse Resp B/P Pulse Ox O2 Delivery O2 Flow Rate FiO2 08/09/16 10:12 90 147/94 96 08/09/16 09:45 36.8 93 18 156/93 96 Room Air Medications Administered Medications (Trade) Dose Ordered Sig/Aurora Route Start Time Stop Time Status Last Admin Dose Admin Morphine Sulfate (MoRPHine SULFATE INJ) 10 mg NOW STAT IM 08/09/16 09:55 08/09/16 09:57 DC 08/09/16 10:06 10 MG Dexamethasone Sodium Phosphate (Decadron Inj) 10 mg NOW ONCE IM 08/09/16 10:00 08/09/16 10:01 DC 08/09/16 10:07 10 MG Ondansetron HCl (Zofran Odt) 4 mg ONE ONCE PO 08/09/16 10:00 08/09/16 10:01 DC 08/09/16 10:00 4 MG Departure Information Impression Primary Impression: Migraine Dispostion Home / Self-Care Condition GOOD Referrals Britton Lopez M.D. (PCP) Patient Instructions My [facility] Additional Instructions Rest at home, resume prescription medications. See your own doctor in follow-up.
[2016-08-09] MEDS ORDERED: DEXAMETHASONE SOD INJ 10 MG/ML VIAL IM ONE (10:00)
[2016-08-09] MEDS ORDERED: ONDANSETRON 4MG OD TAB PO ONE (10:00)
[2016-08-09 10:12] VITALS: BP 147/94; PULSE 90; O2SAT 96
[2016-12-23] MEDS ORDERED: NAPR1TAB48 PO (10:34)
== END 2016-08-09 10:13 | disposition home or self-care (01) ==
LOC: C.EDB 09:30 → C.EDC 10:13
DX: G43.909 Migraine, unspecified, not intractable, without status migrainosus (principal); G89.4 Chronic pain syndrome; E03.9 Hypothyroidism, unspecified; E78.5 Hyperlipidemia, unspecified; F17.210 Nicotine dependence, cigarettes, uncomplicated; Z79.899 Other long term (current) drug therapy

== ENCOUNTER 2016-08-14 07:13 | Emergency (ER) | payer BC ==
[~2016-08-14] VITALS: Ht 172.7 cm; Wt 82.2 kg
[~2016-08-14 07:13] MED LIST changes: -CHN/1 PO; -NAPR1CAP12 PO; -PRED20TA PO
[2016-08-14 07:14] VITALS: TEMP 36.8; Ht 172.7 cm; Wt 82.2 kg
[2016-08-14] MEDS ORDERED: MoRPHine SULFATE 10 MG/ML CARP/VIAL IM STA (07:33)
[2016-08-14] MEDS ORDERED: ATOR-22 PO (07:35)
[2016-08-14] MEDS ORDERED: DEXAMETHASONE SOD INJ 10 MG/ML VIAL IM ONE (07:45)
[2016-08-14] MEDS ORDERED: ONDANSETRON 4MG OD TAB PO ONE (07:45)
[2016-08-14 08:07] VITALS: BP 143/74; PULSE 83; O2SAT 94
--- NOTE | 2016-08-14 11:40 | EMERGENCY ROOM VISIT NOTE ---
ED Visit Note First contact with patient: 07:19 CHIEF COMPLAINT: Migraine headache. HISTORY OF PRESENT ILLNESS: Ms. Damico is a 61 year-old white female who ambulates into the ED complaining of a migraine headache. She reports a gradual onset of a severe migraine headache that started approximately 18 hours ago. The pain is constant and it is slowly increasing in severity. This is not the worst headache of the life and is similar to previous migraines. Currently she describes the headache as a pressure sensation/pain in the occipital area, extending into the cervical spine and then up to the bifrontal/ temporal are. She rates her discomfort as pressure-like. She rates the pain a /10. She has not identified any aggravating or alleviating factors related to the pain. She reports taking prescribed MS Contin and oxycodone without relief of pain. Associated with her headache she reports she has been nauseated and had one episode of vomiting. She denies any recent head trauma, dizziness, lightheadedness, abnormal neurological symptoms, neck pain/stiffness, upper respiratory tract symptoms chest pain, shortness of breath, abdominal pain, extremity weakness/numbness/tingling. REVIEW OF SYSTEMS: As noted above in History of Present Illness. All systems were reviewed with this patient and found to be negative unless noted above otherwise. PAST MEDICAL HISTORY: Chronic pain syndrome, hypothyroidism, migraine headaches , status post cervical spine surgeries. CURRENT MEDICATIONS: Medications Dose Route/Sig Max Daily Dose Days Date Category Dose Instructions Lipitor (Atorvastatin Calcium) 20 Mg Tab 20 Mg PO DAILY 08/14/16 Reported Flexeril (Cyclobenzaprine Hcl) 5 Mg Tab 5 Mg PO HS PRN 03/10/16 Reported PRN Morphine Sulfate Er (Morphine Sulfate) 30 Mg Tab 30 Mg PO TID 12/20/15 Reported Oxycodone Hcl 15 Mg Tab 7.5 Mg PO Q3-4 HRS PRN 12/20/15 Reported Effexor Extended Rel (Venlafaxine Hcl) 150 Mg Capcr 150 Mg PO BID 12/20/15 Reported Estradiol 0.05 Mg Tdsy 1 Patch TD WK 12/20/15 Reported CHANGE PATCH EVERY WEDNESDAY. Levothyroxine Sodium 150 Mcg Tab 150 Mcg PO QAM 12/20/15 Reported ALLERGIES TO MEDICATIONS: Patient denies. SOCIAL HISTORY: Patient is not employed; patient feels safe in her home environment; patient admits to tobacco use but does not specify amounts; patient denies alcohol use. PHYSICAL EXAM: Vital Signs: Date Time Temp Pulse Resp B/P Pulse Ox O2 Delivery O2 Flow Rate FiO2 08/14/16 08:07 83 18 143/74 94 08/14/16 07:14 36.8 86 18 133/82 94 Room Air GENERAL: 61 year-old white female in moderate distress due to pain, afebrile and hemodynamically stable. NEUROLOGIC: Awake, alert and oriented to person place and time. Answering questions appropriately and following commands. Cranial nerves II-XII grossly intact. Good hand eye coordination. No focal neurologic deficits noted. Normal gait. SKIN: Warm, dry and pink. No rashes, lesions or soft tissue trauma noted. HEENT: Normocephalic, atraumatic. Pupils equal, round and reactive. Extraocular movements intact and there is no nystagmus. Sclera anicteric. Ears , nose and oropharynx clear. Funduscopic exam deferred due to light sensitivity. NECK: Soft and supple. No tenderness through the central cervical region or cervical musculature. No meningismus. Full range of motion of the cervical spine. No lymphadenopathy, jugular venous distention, or bruits noted. THORAX: Lungs clear to auscultation and equal bilaterally with no wheezing, crackles, rhonchi or stridor and equal chest wall movements. HEART: Regular rate and rhythm with no murmurs, rubs or gallops. ABDOMEN: Soft and nontender with bowel sounds present in all quadrants; no rigidity, rebound tenderness, organomegaly or guarding. MUSCULOSKELETAL: Full range of motion of all joints without any significant discomfort and the gait is normal. ED COURSE: Patient is assessed with history and physical examination. Patient was given 10 mg of morphine IM, 10 mg of Decadron IM and 4 mg of Zofran ODT for the pain and nausea. Patient was reassessed. Patient was educated about her condition and instructed on her treatment plan; she verbalized understanding and agreement with this plan. CLINICAL IMPRESSION: Acute migraine headache. DECISION MAKIN-year-old female who presents for evaluation of headache. She is afebrile, well appearing, and hemodynamically stable. She has no signs of a sinus, dental , or ear infection and no evidence of meningismus. She is neurologically intact. I do not suspect a headache to be secondary to a subarachnoid hemorrhage, meningitis, encephalitis, or intracranial mass lesion. DISPOSITION: Patient was discharged to home in stable condition accompanied by a friend; prior to departure she was reassessed and subjectively reported she was feeling minimally better. DISCHARGE INSTRUCTIONS: Rest at home, in a quiet darkened room and allow the medication to work for the pain. Continue to follow your current treatment plan prescribed by your physician for your migraine headaches. See your own doctor in follow-up this week for continued care and treatment. Return to the ED for worsening/uncontrolled symptoms, fevers, abnormal neurological symptoms or any new/concerning symptoms.
[2016-12-23] MEDS ORDERED: NAPR1TAB48 PO (10:34)
== END 2016-08-14 08:08 | disposition home or self-care (01) ==
LOC: C.EDB 07:14 → C.EDA 08:08
DX: G43.909 Migraine, unspecified, not intractable, without status migrainosus (principal); G89.4 Chronic pain syndrome; E03.9 Hypothyroidism, unspecified; Z79.899 Other long term (current) drug therapy; Z72.0 Tobacco use

== ENCOUNTER 2016-09-04 15:16 | Emergency (ER) | payer BC ==
[~2016-09-04] VITALS: Ht 172.7 cm; Wt 83.3 kg
[~2016-09-04 15:16] MED LIST changes: +ATOR-22 PO; -ROSU20TA PO
[2016-09-04 15:24] VITALS: Ht 172.7 cm; Wt 83.3 kg
[2016-09-04] MEDS ORDERED: MoRPHine SULFATE 10 MG/ML CARP/VIAL IM STA (15:39)
[2016-09-04] MEDS ORDERED: ONDANSETRON 4MG OD TAB PO STA (15:39)
[2016-09-04] MEDS ORDERED: DEXAMETHASONE SOD INJ 10 MG/ML VIAL IM ONE (15:45)
[2016-09-04] MEDS ORDERED: CHN/1 PO (15:47)
[2016-09-04 16:06] VITALS: BP 119/68; PULSE 91; TEMP 36.7; O2SAT 95
--- NOTE | 2016-09-04 20:36 | EMERGENCY ROOM VISIT NOTE ---
ED Visit Note First contact with patient: 15:30 CHIEF COMPLAINT: Migraine headache HISTORY OF PRESENT ILLNESS: This 61-year-old female patient presented to the emergency department with a gradual onset of a severe generalized headache that started 4 days ago. The patient states the migraine is similar to their typical migraines. There has been associated photophobia, phonophobia, nausea and vomiting. The patient denies fever or chills recently, and there is no weakness or numbness of the extremities. There is no difficulty with speech or vision. No trauma to the head and no neck pain. The pain is severe, constant, and it is slowly increasing in severity. The patient rates the pain as dull and 8/10. The patient has not had relief with her home medications. This is not the worst headache of the life and is similar to previous migraines. Previous imaging studies of the brain have been normal. REVIEW OF SYSTEMS: A review of systems was performed with positives and pertinent negatives listed in the history of present illness. All other systems were reviewed and are negative. ALLERGIES: No known allergies MEDICATIONS: See EMR PMH: History of migraine SOCIAL HISTORY: Lives locally PHYSICAL EXAM: Vital Signs: Reviewed Nurse's notes, vital signs stable. GENERAL: White female, who appears in pain, but non toxic in appearance and in no acute distress. MENTAL STATUS: Alert, oriented, and coherent. HEENT: Normocephalic. PERRLA. EOMI. Nares patent without nuchal rigidity. Tympanic membranes pearly carr without erythema or effusion bilaterally. Mucous membranes moist. NECK: Supple, no nuchal rigidity, nontender, no lymphadenopathy. HEART: Regular rhythm and normal rate without murmurs, ectopy, gallops, or rubs. LUNGS: Clear to auscultation bilaterally without wheezes, rales or rhonchi. No dullness to percussion. No accessory muscle use. No retractions. SKIN: Normal. NEUROLOGICAL: Pupils are round, equal and react to light. The optic fundi are normal and the discs are flat. The patient moves all extremities well and the gait is normal. EMERGENCY DEPARTMENT COURSE: I examined the patient. The patient is not on any formal treatment plan at this facility, but is often seen once or twice per month with migraines. The patient was given 10 mg IM morphine, 10 mg IM Decadron, and 4 g Zofran ODT per their usual protocol. The differential diagnosis includes acute intracranial bleed, meningitis, encephalitis, mass or mass effect, sinusitis, infection, tumor, headache, temporal arteritis and carbon monoxide exposure, and migraine. The patient was discharged home in stable condition with a female regional driver driving. Problem List Medical Problems: (1) CHRONIC PAIN SYNDROME Status: Chronic (2) HYPOTHYROIDISM NOS Status: Chronic (3) MIGRAINE W AURA W/O INTRACT MGRN W/O STATUS MIGRAINOSUS Status: Chronic Current/Historical Medications Scheduled Atorvastatin (Lipitor), 20 MG PO DAILY Estradiol (Estradiol), 1 PATCH TD WK Levothyroxine Sodium (Levothyroxine Sodium), 150 MCG PO QAM Morphine Sulfate (Morphine Sulfate Er), 30 MG PO TID Varenicline (Chantix), 0.5 MG PO QAM Venlafaxine Hcl (Effexor Extended Rel), 300 MG PO QAM Scheduled PRN Cyclobenzaprine Hcl (Flexeril), 5 MG PO HS PRN for Muscle Spasms Oxycodone Hcl (Oxycodone Hcl), 7.5 MG PO Q3-4 HRS PRN for Breakthrough Pain Allergies Coded Allergies: No Known Allergies (Verified , 09/04/16) Vital Signs Date Time Temp Pulse Resp B/P Pulse Ox O2 Delivery O2 Flow Rate FiO2 09/04/16 16:06 36.7 91 20 119/68 95 09/04/16 16:05 91 20 119/68 95 Room Air 09/04/16 15:24 36.7 95 20 119/71 95 Room Air Medications Administered Medications (Trade) Dose Ordered Sig/Aurora Route Start Time Stop Time Status Last Admin Dose Admin Ondansetron HCl (Zofran Odt) 4 mg NOW STAT PO 09/04/16 15:39 09/04/16 15:41 DC 09/04/16 15:54 4 MG Morphine Sulfate (MoRPHine SULFATE INJ) 10 mg NOW STAT IM 09/04/16 15:39 09/04/16 15:41 DC 09/04/16 15:54 10 MG Dexamethasone Sodium Phosphate (Decadron Inj) 10 mg NOW ONCE IM 09/04/16 15:45 09/04/16 15:46 DC 09/04/16 15:54 10 MG Departure Information Impression Primary Impression: Migraine Dispostion Home / Self-Care Condition GOOD Referrals Britton Lopez M.D. (PCP) Forms HOME CARE DOCUMENTATION FORM, IMPORTANT VISIT INFORMATION Patient Instructions My [facility] Additional Instructions DO NOT drive, drink alcohol, operate machinery, or perform dangerous activities today. You were given medications in the ER that can affect your ability to safely function or operate a vehicle. Rest today in a quiet, peaceful, dark environment and get a full 8-10 hrs of sleep tonight. Avoid loud noises, smoke/smoking, alcohol, bright lights, stress, or physical exertion today to minimize the chance the headache may return. Continue current medications. Ibuprofen(Motrin, Advil) may be used for fever or pain. Use 600mg every six hours as needed. Take with food. Avoid using more than 2400mg in a 24 hour period. Do not use 2400mg per day for more than three consecutive days without physician direction. Prolonged inappropriate use can lead to stomach upset or ulcers. (AND/OR) Acetaminophen(Tylenol) may be used for fever or pain. Use 1000mg every six hours as needed. Avoid using more than 4000mg in a 24 hour period. Return to the ER for passing out, worsening headache, vision problems, neck stiffness/pain, fevers, vomiting, worsening of your condition, or as needed. Follow up with your primary physician in 2-3 days for a recheck of your current condition.
[2016-12-23] MEDS ORDERED: NAPR1TAB48 PO (10:34)
== END 2016-09-04 16:06 | disposition home or self-care (01) ==
LOC: C.EDB 15:17 → C.EDD 16:06
DX: G43.909 Migraine, unspecified, not intractable, without status migrainosus (principal); G89.4 Chronic pain syndrome; E03.9 Hypothyroidism, unspecified

== ENCOUNTER 2016-09-14 14:01 | Emergency (ER) | payer BC ==
[~2016-09-14] VITALS: Ht 172.7 cm; Wt 82.9 kg
[~2016-09-14 14:01] MED LIST changes: +CHN/1 PO
[2016-09-14 14:10] VITALS: TEMP 36.8; Ht 172.7 cm; Wt 82.9 kg
[2016-09-14] MEDS ORDERED: ONDANSETRON 4MG OD TAB PO STA (15:03)
[2016-09-14] MEDS ORDERED: MoRPHine SULFATE 10 MG/ML CARP/VIAL IM STA (15:03)
[2016-09-14] MEDS ORDERED: DEXAMETHASONE SOD INJ 4 MG/ML 5 ML VIAL IM STA (15:03)
[2016-09-14] MEDS ORDERED: DEXAMETHASONE SOD INJ 10 MG/ML VIAL IM SCH (15:10)
[2016-09-14] MEDS ORDERED: DEXAMETHASONE SOD INJ 10 MG/ML VIAL ONE (15:11)
[2016-09-14 15:20] VITALS: BP 141/82; PULSE 73; O2SAT 97
--- NOTE | 2016-09-14 15:21 | EMERGENCY ROOM VISIT NOTE ---
ED Visit Note First contact with patient: 14:47 CHIEF COMPLAINT: Migraine headache HISTORY OF PRESENT ILLNESS: This 61-year-old female patient presented to the emergency department the a private vehicle with a gradual onset of a severe generalized headache that started 2 days ago. The patient states the migraine is similar to their typical migraines. There has been associated photophobia, phonophobia, nausea and vomiting. The patient denies fever or chills recently, and there is no weakness or numbness of the extremities. There is no difficulty with speech or vision. No trauma to the head and no neck pain. The pain is severe, constant, and it is slowly increasing in severity. The patient rates the pain as constant and 8/10. This is not the worst headache of the life and is similar to previous migraines. Previous imaging studies of the brain have been normal from an emergency depart standpoint. REVIEW OF SYSTEMS: A review of systems was performed with positives and pertinent negatives listed in the history of present illness. All other systems were reviewed and are negative. ALLERGIES: No known allergies MEDICATIONS: As noted below PMH: Migraine headaches SOCIAL HISTORY: Patient lives alone PHYSICAL EXAM: Vital Signs: Reviewed Nurse's notes, vital signs stable. GENERAL : 61-year-old female, who appears in pain, but non toxic in appearance and in no acute distress. MENTAL STATUS: Alert, oriented, and coherent. HEENT: Normocephalic. PERRLA. EOMI. Nares patent without nuchal rigidity. Tympanic membranes pearly carr without erythema or effusion bilaterally. Mucous membranes moist. NECK: Supple, no nuchal rigidity, nontender, no lymphadenopathy. HEART: Regular rhythm and normal rate without murmurs, ectopy, gallops, or rubs. LUNGS: Clear to auscultation bilaterally without wheezes, rales or rhonchi. No accessory muscle use. No retractions. SKIN: Normal. NEUROLOGICAL: Pupils are round, equal and react to light. The patient moves all extremities well and the gait is normal. EMERGENCY DEPARTMENT COURSE: I examined the patient. The patient is on a 2 narcotic injection per month treatment plan for their migraines. The patient was given 4 mg of Zofran ODT, 10 mg of morphine intramuscularly, 10 mg of Decadron intramuscularly per their usual protocol. The differential diagnosis includes acute intracranial bleed, meningitis, encephalitis, mass or mass effect , sinusitis, infection, tumor, headache, temporal arteritis and carbon monoxide exposure, and migraine. The patient was discharged home in stable condition with other individual driving. Problem List Medical Problems: (1) CHRONIC PAIN SYNDROME Status: Chronic (2) HYPOTHYROIDISM NOS Status: Chronic (3) MIGRAINE W AURA W/O INTRACT MGRN W/O STATUS MIGRAINOSUS Status: Chronic Current/Historical Medications Scheduled Atorvastatin (Lipitor), 20 MG PO DAILY Estradiol (Estradiol), 1 PATCH TD WK Levothyroxine Sodium (Levothyroxine Sodium), 150 MCG PO QAM Morphine Sulfate (Morphine Sulfate Er), 30 MG PO TID Varenicline (Chantix), 0.5 MG PO QAM Venlafaxine Hcl (Effexor Extended Rel), 300 MG PO QAM Scheduled PRN Cyclobenzaprine Hcl (Flexeril), 5 MG PO HS PRN for Muscle Spasms Oxycodone Hcl (Oxycodone Hcl), 7.5 MG PO Q3-4 HRS PRN for Breakthrough Pain Allergies Coded Allergies: No Known Allergies (Verified , 09/04/16) Vital Signs Date Time Temp Pulse Resp B/P (MAP) Pulse Ox O2 Delivery O2 Flow Rate FiO2 09/14/16 15:20 73 18 141/82 97 Room Air 09/14/16 14:10 36.8 88 20 124/70 96 Room Air Medications Administered Medications (Trade) Dose Ordered Sig/Aurora Route Start Time Stop Time Status Last Admin Dose Admin Ondansetron HCl (Zofran Odt) 4 mg NOW STAT PO 09/14/16 15:03 09/14/16 15:05 DC 09/14/16 15:19 4 MG Morphine Sulfate (MoRPHine SULFATE INJ) 10 mg NOW STAT IM 09/14/16 15:03 09/14/16 15:05 DC 09/14/16 15:20 10 MG Dexamethasone Sodium Phosphate (Decadron Inj) 10 mg STK-MED ONCE .ROUTE 09/14/16 15:11 09/14/16 15:12 DC 09/14/16 15:19 10 MG Departure Information Impression Primary Impression: Headache Dispostion Home / Self-Care Condition GOOD Referrals Britton Lopez M.D. (PCP) Patient Instructions My [facility] Additional Instructions You have been treated in the Emergency Department for a Headache. You have received pain medicine in the emergency department which impairs your ability to operate a vehicle. It is illegal for you to drive after receiving these medicines. For pain control, you can use the following [id number] medicines (if >12 yo): - Regular strength (325mg/tab) Tylenol (acetaminophen) 2 tabs every 4-6 hours as needed. Do not exceed 12 tablets in a 24 hour period. Avoid taking more than 3 grams (3000 mg) of Tylenol per day. This includes any other sources of acetaminophen you may take on a regular basis. - Regular strength (200 mg/tab) Advil (ibuprofen) 1-2 tabs every 4-6 hours as needed. Do not exceed a dose of 3200 mg per day. You should relax in a quiet, dark place for the rest of the day. Avoid any possible triggers including: cigarette smoke, caffeine, nicotine, chocolate, wine, beer, loud noises or music, or bright lights. You should schedule a follow-up appointment in 2-3 days with your Primary Care Provider or established Neurologist for further evaluation and treatment of your Headache. Return to the Emergency Department if your current symptoms worsen despite treatment course outlined above, or if you develop any of the following symptoms : intractable pain despite aforementioned treatment course, visual disturbances , loss of vision, unilateral weakness or facial drooping, slurring of speech, loss of coordination, or loss of consciousness. Please return to the emergency department with any/concerning symptoms.
[2016-12-23] MEDS ORDERED: NAPR1TAB48 PO (10:34)
== END 2016-09-14 15:38 | disposition home or self-care (01) ==
LOC: C.EDB 14:06 → C.EDD 15:38
DX: R51 Headache (principal); E03.9 Hypothyroidism, unspecified; Z79.899 Other long term (current) drug therapy

== ENCOUNTER 2016-09-28 06:52 | Emergency (ER) | payer BC ==
[~2016-09-28] VITALS: Ht 172.7 cm; Wt 81.2 kg
[2016-09-28 06:55] VITALS: TEMP 37; Ht 172.7 cm; Wt 81.2 kg
[2016-09-28] MEDS ORDERED: DEXAMETHASONE SOD INJ 10 MG/ML VIAL IM STA (07:01)
[2016-09-28] MEDS ORDERED: ONDANSETRON 4MG OD TAB PO STA (07:01)
[2016-09-28] MEDS ORDERED: MoRPHine SULFATE 10 MG/ML CARP/VIAL IM STA (07:01)
--- NOTE | 2016-09-28 07:08 | EMERGENCY ROOM VISIT NOTE ---
ED Visit Note First contact with patient: 06:59 CHIEF COMPLAINT: Migraine headache HISTORY OF PRESENT ILLNESS: This 61-year-old female patient presented to the emergency department via private vehicle with a gradual onset of a severe generalized headache that started 3 days ago. The patient states the migraine is similar to their typical migraines. There has been associated photophobia, phonophobia, nausea but no vomiting. The patient denies fever or chills recently , and there is no weakness or numbness of the extremities. There is no difficulty with speech or vision. No trauma to the head and no neck pain. The pain is severe, constant, and it is slowly increasing in severity. The patient rates the pain as constant and 8/10. This is not the worst headache of the life and is similar to previous migraines. Previous imaging studies of the brain have been normal from an emergency department standpoint. REVIEW OF SYSTEMS: A review of systems was performed with positives and pertinent negatives listed in the history of present illness. All other systems were reviewed and are negative. ALLERGIES: No known allergies MEDICATIONS: As noted below PMH: As noted below SOCIAL HISTORY: Patient lives locally PHYSICAL EXAM: Vital Signs: Reviewed Nurse's notes, vital signs stable. GENERAL : 61-year-old female, who appears in pain, but non toxic in appearance and in no acute distress. MENTAL STATUS: Alert, oriented, and coherent. HEENT: Normocephalic. PERRLA. EOMI. Nares patent without nuchal rigidity. Tympanic membranes pearly carr without erythema or effusion bilaterally. Mucous membranes moist. NECK: Supple, no nuchal rigidity, nontender, no lymphadenopathy. HEART: Regular rhythm and normal rate without murmurs, ectopy, gallops, or rubs. LUNGS: Clear to auscultation bilaterally without wheezes, rales or rhonchi. No accessory muscle use. No retractions. SKIN: Normal. NEUROLOGICAL: Pupils are round, equal and react to light. The patient moves all extremities well and the gait is normal. EMERGENCY DEPARTMENT COURSE: I examined the patient. The patient is on a 2 narcotic injection per month treatment plan for their migraines. The patient was given 4 mg of Zofran ODT, 10 mg of morphine, and 10 mg of dexamethasone per their usual protocol. The differential diagnosis includes acute intracranial bleed, meningitis, encephalitis, mass or mass effect, sinusitis, infection, tumor, headache, temporal arteritis and carbon monoxide exposure, and migraine. The patient was discharged home in stable condition with a mechanic welder truck driver driving. She is to follow-up with Dr. Lopez for her migraines, and is to receive Botox injections at the end of the month for her headaches. Problem List Medical Problems: (1) CHRONIC PAIN SYNDROME Status: Chronic (2) HYPOTHYROIDISM NOS Status: Chronic (3) MIGRAINE W AURA W/O INTRACT MGRN W/O STATUS MIGRAINOSUS Status: Chronic Current/Historical Medications Scheduled Atorvastatin (Lipitor), 20 MG PO DAILY Estradiol (Estradiol), 1 PATCH TD WK Levothyroxine Sodium (Levothyroxine Sodium), 150 MCG PO QAM Morphine Sulfate (Morphine Sulfate Er), 30 MG PO TID Varenicline (Chantix), 0.5 MG PO QAM Venlafaxine Hcl (Effexor Extended Rel), 300 MG PO QAM Scheduled PRN Cyclobenzaprine Hcl (Flexeril), 5 MG PO HS PRN for Muscle Spasms Oxycodone Hcl (Oxycodone Hcl), 7.5 MG PO Q3-4 HRS PRN for Breakthrough Pain Allergies Coded Allergies: No Known Allergies (Verified , 09/28/16) Vital Signs Date Time Temp Pulse Resp B/P (MAP) Pulse Ox O2 Delivery O2 Flow Rate FiO2 09/28/16 07:32 90 18 151/82 96 09/28/16 06:55 37.0 99 18 121/76 96 Room Air Medications Administered Medications (Trade) Dose Ordered Sig/Aurora Route Start Time Stop Time Status Last Admin Dose Admin Ondansetron HCl (Zofran Odt) 4 mg NOW STAT PO 09/28/16 07:01 09/28/16 07:03 DC 09/28/16 07:15 4 MG Morphine Sulfate (MoRPHine SULFATE INJ) 10 mg NOW STAT IM 09/28/16 07:01 09/28/16 07:03 DC 09/28/16 07:17 10 MG Dexamethasone Sodium Phosphate (Decadron Inj) 10 mg NOW STAT IM 09/28/16 07:01 09/28/16 07:03 DC 09/28/16 07:16 10 MG Departure Information Impression Primary Impression: Headache Dispostion Home / Self-Care Condition GOOD Referrals Britton Lopez M.D. (PCP) Patient Instructions My [facility] Additional Instructions You have been treated in the Emergency Department for a Headache. You have received pain medicine in the emergency department which impairs your ability to operate a vehicle. It is illegal for you to drive after receiving these medicines. For pain control, you can use the following [id number] medicines (if >12 yo): - Regular strength (325mg/tab) Tylenol (acetaminophen) 2 tabs every 4-6 hours as needed. Do not exceed 12 tablets in a 24 hour period. Avoid taking more than 3 grams (3000 mg) of Tylenol per day. This includes any other sources of acetaminophen you may take on a regular basis. - Regular strength (200 mg/tab) Advil (ibuprofen) 1-2 tabs every 4-6 hours as needed. Do not exceed a dose of 3200 mg per day. You should relax in a quiet, dark place for the rest of the day. Avoid any possible triggers including: cigarette smoke, caffeine, nicotine, chocolate, wine, beer, loud noises or music, or bright lights. You should schedule a follow-up appointment in 2-3 days with your Primary Care Provider or established Neurologist for further evaluation and treatment of your Headache. Thank you. Return to the Emergency Department if your current symptoms worsen despite treatment course outlined above, or if you develop any of the following symptoms : intractable pain despite aforementioned treatment course, visual disturbances , loss of vision, unilateral weakness or facial drooping, slurring of speech, loss of coordination, or loss of consciousness. Have a good day.
[2016-09-28 07:32] VITALS: BP 151/82; PULSE 90; O2SAT 96
[2016-12-23] MEDS ORDERED: NAPR1TAB48 PO (10:34)
== END 2016-09-28 07:33 | disposition home or self-care (01) ==
LOC: C.EDB 06:52
DX: G43.909 Migraine, unspecified, not intractable, without status migrainosus (principal); G89.4 Chronic pain syndrome; E03.9 Hypothyroidism, unspecified

== ENCOUNTER 2016-10-08 09:52 | Emergency (ER) | payer BC ==
[~2016-10-08] VITALS: Ht 172.7 cm; Wt 82.8 kg
[2016-10-08 09:53] VITALS: TEMP 36.9; Ht 172.7 cm; Wt 82.8 kg
[2016-10-08] MEDS ORDERED: PRED10TA PO (10:23)
[2016-10-08] MEDS ORDERED: MoRPHine SULFATE 10 MG/ML CARP/VIAL IM STA (10:24)
[2016-10-08] MEDS ORDERED: DEXAMETHASONE SOD INJ 10 MG/ML VIAL IM ONE (10:30)
[2016-10-08] MEDS ORDERED: ONDANSETRON 4MG OD TAB PO ONE (10:30)
[2016-10-08 10:57] VITALS: BP 127/71; PULSE 78; O2SAT 97
--- NOTE | 2016-10-08 11:47 | EMERGENCY ROOM VISIT NOTE ---
History First contact with patient: 10:18 Chief Complaint: HEADACHE Stated Complaint: MIGRAINE History of Present Illness The patient is a 61 year old female, well-known to the emergency department with history of chronic migraines, who presents to the Emergency Room with complaints of "my typical migraine". Her headache developed this morning. She reports that her headaches are usually related to weather fronts. She usually receives intramuscular treatment here, and continues with prednisone at home until the migraine resolves. She reports nausea without vomiting. The patient denies any change in character of this migraine, and is not the worse headache of her life. She denies any recent head injury, upper respiratory infection, sinus congestion or risk of carbon monoxide exposure. Review of Systems 10 system review was performed and was negative except for pertinent positives and negatives as indicated in history of present illness Past Medical/Surgical History Medical Problems: (1) CHRONIC PAIN SYNDROME (2) HYPOTHYROIDISM NOS (3) MIGRAINE W AURA W/O INTRACT MGRN W/O STATUS MIGRAINOSUS Family History Diabetes mellitus Heart disease Hypertension Social History Smoking Status: Never Smoker Alcohol Use: none Drug Use: none Marital Status: Housing Status: lives alone Occupation Status: retired Current/Historical Medications Scheduled Atorvastatin (Lipitor), 20 MG PO DAILY Estradiol (Estradiol), 1 PATCH TD WK Levothyroxine Sodium (Levothyroxine Sodium), 150 MCG PO QAM Morphine Sulfate (Morphine Sulfate Er), 30 MG PO TID Prednisone (Prednisone), 30 MG PO UD Varenicline (Chantix), 0.5 MG PO QAM Venlafaxine Hcl (Effexor Extended Rel), 300 MG PO QAM Scheduled PRN Cyclobenzaprine Hcl (Flexeril), 5 MG PO HS PRN for Muscle Spasms Oxycodone Hcl (Oxycodone Hcl), 7.5 MG PO Q3-4 HRS PRN for Breakthrough Pain Allergies Coded Allergies: No Known Allergies (Verified , 10/08/16) Physical Exam Vital Signs Date Time Temp Pulse Resp B/P (MAP) Pulse Ox O2 Delivery O2 Flow Rate FiO2 10/08/16 10:57 78 127/71 97 10/08/16 09:53 36.9 92 16 143/75 97 Room Air Pain Rating (0-10): 6.0 Physical Exam CONSTITUTIONAL: Healthy and well nourished. Alert and oriented X 3 with positive affect. HEENT: Normocephalic, atraumatic. Pupils equal, round and reactive. Patient is photophobic, precluding funduscopic exam. NECK: Full active range of motion without discomfort. No JVD or carotid bruits. INTEGUMENTARY: No rash or other significant dermatologic conditions noted. NEUROLOGIC: Cranial nerves II-XII grossly intact. No focal neurologic deficits noted. No ataxia with ambulation. Medical Decision & Procedures Medications Administered Medications (Trade) Dose Ordered Sig/Aurora Route Start Time Stop Time Status Last Admin Dose Admin Morphine Sulfate (MoRPHine SULFATE INJ) 10 mg NOW STAT IM 10/08/16 10:24 10/08/16 10:27 DC 10/08/16 10:50 10 MG Dexamethasone Sodium Phosphate (Decadron Inj) 10 mg NOW ONCE IM 10/08/16 10:30 10/08/16 10:31 DC 10/08/16 10:49 10 MG Ondansetron HCl (Zofran Odt) 4 mg ONE ONCE PO 10/08/16 10:30 10/08/16 10:31 DC 10/08/16 10:48 4 MG ED Course Patient history and physical exam were performed. Nurse's notes were reviewed. Vital signs were reviewed and were normal. According to her usual treatment protocol, the patient was administered morphine 10 mg and Decadron 10 mg, along with Zofran 4 mg ODT. The patient requested discharge home, rating her discomfort a 7 out of 10 at that time. The patient was instructed to rest and remain well-hydrated. Continue with her usual home treatment regimen, and return to the emergency department for any rebound migraine or other concerning neurologic symptoms. The patient was happy with plan of care, and voiced understanding of all discharge instructions. Medical Decision Patient denies any different in character to this headache with her typical migraine. Based on history and physical exam findings, I do not feel that additional imaging or laboratory studies are warranted. I do not suspect meningitis, abscess, bleed, CVA/TIA, thromboembolic event or carbon monoxide poisoning. Impression Primary Impression: Migraine headache Departure Information Dispostion Home / Self-Care Condition GOOD Referrals Britton Lopez M.D. (PCP) Forms HOME CARE DOCUMENTATION FORM, IMPORTANT VISIT INFORMATION Patient Instructions My [facility] Additional Instructions Rest and remain well-hydrated. Return to the emergency department for any recurrent worsening migraine or other concerning neurologic symptoms. Problem Qualifiers Primary Impression: Migraine headache Migraine type: unspecified Status migrainosus presence: without status migrainosus Intractability: not intractable Qualified Codes: G43.909 - Migraine, unspecified, not intractable, without status migrainosus
== END 2016-10-08 10:58 | disposition home or self-care (01) ==
LOC: C.EDB 09:53
DX: G43.909 Migraine, unspecified, not intractable, without status migrainosus (principal); G89.4 Chronic pain syndrome; E03.9 Hypothyroidism, unspecified; Z83.3 Family history of diabetes mellitus; Z82.49 Family history of ischemic heart disease and other diseases of the circulatory system

== ENCOUNTER 2016-10-20 08:03 | Emergency (ER) | payer BC ==
[~2016-10-20] VITALS: Ht 172.7 cm; Wt 82.1 kg
[~2016-10-20 08:03] MED LIST changes: +PRED10TA PO
[2016-10-20 08:06] VITALS: BP 117/75; PULSE 94; TEMP 36.9; O2SAT 95; Ht 172.7 cm; Wt 82.1 kg
[2016-10-20] MEDS ORDERED: ONDANSETRON 4MG OD TAB PO STA (08:15)
[2016-10-20] MEDS ORDERED: MoRPHine SULFATE 10 MG/ML CARP/VIAL IM STA (08:15)
[2016-10-20] MEDS ORDERED: DEXAMETHASONE SOD INJ 10 MG/ML VIAL IM ONE (08:15)
--- NOTE | 2016-10-20 08:30 | EMERGENCY ROOM VISIT NOTE ---
ED Visit Note First contact with patient: 08:11 CHIEF COMPLAINT: Migraine headache HISTORY OF PRESENT ILLNESS: This 58-year-old patient presented to the emergency department with a gradual onset of a severe generalized headache that started 2 days ago. There has been associated photophobia, phonophobia, nausea and vomiting. The patient denies fever or chills recently, and there is no weakness or numbness of the extremities. There is no difficulty with speech or vision. No trauma to the head and no neck pain. The pain is severe, constant, and it is slowly increasing in severity. The patient rates the pain as and sharp and 8/ 10. The patient has taken her usual medications. This is not the worst headache of the life and is similar to previous migraines. Previous imaging studies of the brain (CT scans) have been normal. REVIEW OF SYSTEMS: An 8 system review of systems was completed with positives and pertinent negatives listed in the HPI. ALLERGIES: No known allergies MEDICATIONS: Unchanged from previous PMH: Unchanged from previous SOCIAL HISTORY: The patient is a smoker. She lives locally PHYSICAL EXAM: Vital Signs: Reviewed Nurse's notes, vital signs stable. MENTAL STATUS: Alert, oriented, and coherent. In great distress from the headache. NECK : Supple, no nuchal rigidity, nontender, no lymphadenopathy. HEART: Regular rhythm and normal rate without murmurs, ectopy, gallops, or rubs. SKIN: Normal. NEUROLOGICAL: Pupils are round, equal and react to light. The optic fundi are normal and the discs are flat. EOMs are full and there is no nystagmus. The patient moves all extremities well and the gait is normal. EMERGENCY DEPARTMENT COURSE: I examined the patient. The patient is well-known to the emergency department. She is on a 2 shot per month treatment protocol. This is her second visit for the month. The patient was given 10 mg IM morphine and 10 mg IM Decadron and 4 mg oral Zofran with relief of their pain. The differential diagnosis includes acute intracranial bleed, meningitis, encephalitis, mass or mass effect, sinusitis, infection, tumor, headache, temporal arteritis and carbon monoxide exposure, and migraine. The patient was discharged home in stable condition with a spike driver DIAGNOSIS: Migraine headache DISCHARGE INSTRUCTIONS & TREATMENT: Rest at home, resume prescription medications. See your own doctor in follow-up. Problem List Medical Problems: (1) CHRONIC PAIN SYNDROME Status: Chronic (2) HYPOTHYROIDISM NOS Status: Chronic (3) MIGRAINE W AURA W/O INTRACT MGRN W/O STATUS MIGRAINOSUS Status: Chronic Current/Historical Medications Scheduled Estradiol (Estradiol), 1 PATCH TD WK Levothyroxine Sodium (Levothyroxine Sodium), 150 MCG PO QAM Morphine Sulfate (Morphine Sulfate Er), 30 MG PO TID Prednisone (Prednisone), 30 MG PO UD Varenicline (Chantix), 0.5 MG PO QAM Venlafaxine Hcl (Effexor Extended Rel), 300 MG PO QAM Scheduled PRN Cyclobenzaprine Hcl (Flexeril), 5 MG PO HS PRN for Muscle Spasms Oxycodone Hcl (Oxycodone Hcl), 7.5 MG PO Q3-4 HRS PRN for Breakthrough Pain Allergies Coded Allergies: No Known Allergies (Verified , 10/20/16) Vital Signs Date Time Temp Pulse Resp B/P (MAP) Pulse Ox O2 Delivery O2 Flow Rate FiO2 10/20/16 08:06 36.9 94 18 117/75 95 Room Air Medications Administered Medications (Trade) Dose Ordered Sig/Aurora Route Start Time Stop Time Status Last Admin Dose Admin Morphine Sulfate (MoRPHine SULFATE INJ) 10 mg NOW STAT IM 10/20/16 08:15 10/20/16 08:17 DC 10/20/16 08:29 10 MG Dexamethasone Sodium Phosphate (Decadron Inj) 10 mg NOW ONCE IM 10/20/16 08:15 10/20/16 08:17 DC 10/20/16 08:28 10 MG Ondansetron HCl (Zofran Odt) 4 mg NOW STAT PO 10/20/16 08:15 10/20/16 08:17 DC 10/20/16 08:27 4 MG Departure Information Impression Primary Impression: Migraine Dispostion Home / Self-Care Condition GOOD Referrals Britton Lopez M.D. (PCP) Patient Instructions My [facility] [employer] Additional Instructions Rest at home, resume prescription medications. See your own doctor in follow- up. Problem Qualifiers Primary Impression: Migraine
== END 2016-10-20 08:34 | disposition home or self-care (01) ==
LOC: C.EDB 08:05 → C.EDA 08:34
DX: G43.909 Migraine, unspecified, not intractable, without status migrainosus (principal); E03.9 Hypothyroidism, unspecified; G89.4 Chronic pain syndrome; F17.210 Nicotine dependence, cigarettes, uncomplicated; Z79.899 Other long term (current) drug therapy

== ENCOUNTER 2016-12-23 10:09 | Emergency (ER) | payer BC ==
[~2016-12-23] VITALS: Ht 170.2 cm; Wt 81.9 kg
[~2016-12-23 10:09] MED LIST changes: -ATOR-22 PO
[2016-12-23 10:21] VITALS: TEMP 36.5; Ht 170.2 cm; Wt 81.9 kg
[2016-12-23] MEDS ORDERED: ATOR-22 PO (10:34)
[2016-12-23] MEDS ORDERED: NAPR250T2 PO (10:34)
[2016-12-23] MEDS ORDERED: ONDANSETRON 4MG OD TAB PO STA (11:26)
[2016-12-23] MEDS ORDERED: MoRPHine SULFATE 10 MG/ML CARP/VIAL IM STA (11:26)
[2016-12-23] MEDS ORDERED: DEXAMETHASONE SOD INJ 10 MG/ML VIAL IM ONE (11:30)
[2016-12-23 11:46] VITALS: BP 157/101; PULSE 77; O2SAT 96
--- NOTE | 2016-12-23 14:05 | EMERGENCY ROOM VISIT NOTE ---
History First contact with patient: 11:19 Chief Complaint: HEADACHE Stated Complaint: MIGRAINE History of Present Illness The patient is a 61 year old female who presents to the Emergency Room with complaints of "atypical migraine". The patient is well-known to the emergency department. The patient reports that she has not had a migraine for the past 2 months area the patient is currently undergoing Botox injections. She has had this headache since last night. She denies any other recent upper respiratory infections, head injury or risk of carbon monoxide exposure. Ports photophobia , phonophobia and nausea without vomiting. She rates her discomfort an 8 out of 10. It is not the worse headache of her life. Review of Systems 10 system review was performed and was negative except for pertinent positives and negatives as indicated in history of present illness Past Medical/Surgical History Medical Problems: (1) CHRONIC PAIN SYNDROME (2) HYPOTHYROIDISM NOS (3) MIGRAINE W AURA W/O INTRACT MGRN W/O STATUS MIGRAINOSUS Family History Diabetes mellitus Heart disease Hypertension Social History Smoking Status: Current Every Day Smoker Alcohol Use: none Drug Use: none Marital Status: Housing Status: lives alone Occupation Status: retired Current/Historical Medications Scheduled Atorvastatin (Lipitor), 20 MG PO DAILY Estradiol (Estradiol), 1 PATCH TD WK Levothyroxine Sodium (Levothyroxine Sodium), 150 MCG PO QAM Morphine Sulfate (Morphine Sulfate Er), 30 MG PO TID Naproxen (Naprosyn), 250 MG PO NEEDED Venlafaxine Hcl (Effexor Extended Rel), 300 MG PO QAM Scheduled PRN Cyclobenzaprine Hcl (Flexeril), 5 MG PO HS PRN for Muscle Spasms Oxycodone Hcl (Oxycodone Hcl), 7.5 MG PO Q3-4 HRS PRN for Breakthrough Pain Physical Exam Vital Signs Date Time Temp Pulse Resp B/P (MAP) Pulse Ox O2 Delivery O2 Flow Rate FiO2 12/23/16 11:46 77 16 157/101 96 12/23/16 10:21 36.5 87 18 150/89 98 Room Air Pain Rating (0-10): 7.0 Physical Exam CONSTITUTIONAL: Healthy and well nourished. Alert and oriented X 3 with positive affect. Patient is resting in a darkened room. HEENT: Normocephalic, atraumatic. Pupils equal, round and reactive. Patient is photophobic, precluding funduscopic exam. NECK: Full active range of motion without discomfort. No JVD or carotid bruits. RESPIRATORY: Clear to auscultation bilaterally with no wheezing, crackles, rhonchi or stridor. CARDIOVASCULAR: Regular rate and rhythm with no murmurs, rubs or gallops. MUSCULOSKELETAL: Full range of motion of all joints without discomfort. Patient ambulates without antalgic gait. INTEGUMENTARY: No rash or other significant dermatologic conditions noted. NEUROLOGIC: Cranial nerves II-XII grossly intact. No focal neurologic deficits noted. No ataxia noted. Negative pronator drift. Medical Decision & Procedures Medications Administered Medications (Trade) Dose Ordered Sig/Aurora Route Start Time Stop Time Status Last Admin Dose Admin Morphine Sulfate (MoRPHine SULFATE INJ) 10 mg NOW STAT IM 12/23/16 11:26 12/23/16 11:28 DC 12/23/16 11:34 10 MG Ondansetron HCl (Zofran Odt) 4 mg NOW STAT PO 12/23/16 11:26 12/23/16 11:28 DC 12/23/16 11:33 4 MG Dexamethasone Sodium Phosphate (Decadron Inj) 10 mg NOW ONCE IM 12/23/16 11:30 12/23/16 11:31 DC 12/23/16 11:34 10 MG ED Course Patient history and physical exam were performed. Nurse's notes were reviewed. Vital signs were reviewed and were normal. Review of medical records shows that the patient usually gets IM morphine and Decadron, along with oral Zofran ODT with good relief of her migraine. The patient was therefore administered morphine 10 mg and Decadron 10 mg IM, along with Zofran 4 mg ODT. The patient rated her discomfort a 6 out of 10 at the time of discharge. She was instructed to rest and remain well-hydrated. She was instructed to follow-up with pain management, family doctor or neurologist as needed. She was instructed to return for any progressively worsening headache or other concerning neurologic symptoms. The patient was happy with plan of care, and voiced understanding of all discharge instructions. Medical Decision Patient presents to the emergency department with complaint of a migraine headache. The patient has a history of chronic migraines. The patient reports that this is not the worse headache of her life. At this point, I do not feel that any additional laboratory or imaging studies are warranted. History and clinical exam findings are not consistent with intracranial bleed, meningitis, abscess, hematoma, CVA/TIA or carbon monoxide poisoning. Medication Reconcilliation Current Medication List: was personally reviewed by me Blood Pressure Screening Patient's blood pressure: Normal blood pressure Impression Primary Impression: Migraine Departure Information Dispostion Home / Self-Care Referrals Britton Lopez M.D. (PCP) Forms HOME CARE DOCUMENTATION FORM, IMPORTANT VISIT INFORMATION Patient Instructions My [facility] [employer] Additional Instructions Rest and remain well-hydrated. Follow-up with your family doctor or neurologist as needed. Problem Qualifiers Primary Impression: Migraine Migraine type: unspecified Status migrainosus presence: without status migrainosus Intractability: not intractable Qualified Codes: G43.909 - Migraine, unspecified, not intractable, without status migrainosus
== END 2016-12-23 11:48 | disposition home or self-care (01) ==
LOC: C.EDB 10:13 → C.EDC 11:48
DX: G43.909 Migraine, unspecified, not intractable, without status migrainosus (principal); E03.9 Hypothyroidism, unspecified; G89.4 Chronic pain syndrome; F17.210 Nicotine dependence, cigarettes, uncomplicated; Z79.899 Other long term (current) drug therapy

== ENCOUNTER → 2017-01-05 | Outpatient (CLI) | payer BC ==
[~2017-01-05] MED LIST changes: +ATOR-22 PO; -CHN/1 PO; +NAPR250T2 PO; -PRED10TA PO
[2017-01-05 13:56] LABS: CHOLESTEROL/HDL RATIO 2.9
== END | disposition home or self-care (01) ==
LOC: C.LABBC 09:15
PROVIDERS: ATTEND Internal Medicine
DX: Z13.6 Encounter for screening for cardiovascular disorders (principal)

== ENCOUNTER → 2017-02-08 | Outpatient (CLI) | payer BC ==
[~2017-02-08] MED LIST changes: +NAPR1TAB48 PO; -NAPR250T2 PO
[2017-02-08 17:54] LABS: THYROID STIMULATING HORMONE 0.023 uIu/ml (0.300-4.500)
[2017-02-10 15:30] LABS: THYROGLOBULIN <0.1 NG/ML (2.8-40.9)
== END | disposition home or self-care (01) ==
LOC: C.LABBFT 13:44
PROVIDERS: ATTEND Internal Medicine
DX: E55.9 Vitamin D deficiency, unspecified (principal); E89.0 Postprocedural hypothyroidism

== ENCOUNTER → 2017-04-07 | Outpatient (CLI) | payer BC ==
[~2017-04-07] MED LIST changes: +ASPI-435 PO; +LYR50 PO; +PREG75CA PO
--- NOTE | 2017-04-07 12:29 | DIAGNOSTIC IMAGING REPORT ---
CT LUNG SCREENING, LOW DOSE WITH COMPUTER-AIDED DETECTION (CAD) CLINICAL HISTORY: Smoking history. COMPARISON STUDY: Chest CT 03/12/2016. CT DOSE: 96.06 mGy.cm TECHNIQUE: Low-dose helical CT was acquired without intravenous contrast from lung apices to bases and reconstructed at 2.5 mm every 2 mm. CAD was utilized for this study. A dose lowering technique was utilized adhering to the principles of ALARA. FINDINGS: Partially visualized cervical spinal fusion hardware. The central airways are patent. No pleural effusions. No pneumothorax. No suspicious lytic or blastic osseous lesions. No mediastinal or hilar lymphadenopathy. The heart is normal in size. A few scattered hypodense lesions within the liver are again noted. Stable 15 mm left adrenal gland nodule consistent with a benign adenoma. Subcentimeter nodules within the right lower lobe on image image 87 and within the right middle lobe on image 79 are similar in size. These are described below. No new pulmonary nodules identified. Nodule 1 Category: 2 Nodule 1 Status: Stable. Nodule 1 Description: Solid Nodule 1 Lesion ID: 3 Nodule 1 Slice Number: 50 Nodule 1 Volume (mm3): 18 Nodule 1 Major Gordon mm: 3.3 Nodule 1 Minor Gordon mm: 2.6 Nodule 2 Category: 2 Nodule 2 Status: Stable Nodule 2 Description: Solid Nodule 2 Lesion ID: 2 Nodule 2 Slice Number: 58 Nodule 2 Volume (mm3): 19 Nodule 2 Major Gordon mm: 4.4 Nodule 2 Minor Gordon mm: 3.1 IMPRESSION: No change compared to the prior study. Follow-up detailed below. CAD FINDINGS: Overall Lung RADS Category: 2 Lung RADS Management Recommendation: Continue annual lung cancer screening. Lung RADS Follow Up Date: 2018-04-07 Lung RADS Nodule ID: [id number] Electronically signed by: Ronaldo Vigil M.D. 04/07/2017 12:28 PM Dictated Date/Time: 04/07/2017 12:19 PM
== END | disposition home or self-care (01) ==
LOC: C.CTS 11:54
PROVIDERS: ATTEND Internal Medicine
DX: Z87.891 Personal history of nicotine dependence (principal)

== ENCOUNTER → 2017-05-11 | Outpatient (CLI) | payer BC ==
[~2017-05-11] MED LIST changes: -ASPI-435 PO; -LYR50 PO; -PREG75CA PO
== END | disposition home or self-care (01) ==
LOC: C.LABBFT 14:08
PROVIDERS: ATTEND Internal Medicine
DX: E55.9 Vitamin D deficiency, unspecified (principal); E89.0 Postprocedural hypothyroidism

== ENCOUNTER → 2017-07-12 | Outpatient (CLI) | payer BC ==
[~2017-07-12] MED LIST changes: +LYR50 PO
--- NOTE | 2017-07-13 07:47 | MAMMOGRAPHY REPORT ---
BILATERAL DIGITAL SCREENING MAMMOGRAM TOMOSYNTHESIS WITH CAD: 07/12/2017 CLINICAL HISTORY: Routine screening. Patient has no complaints. TECHNIQUE: Breast tomosynthesis in addition to standard 2D mammography was performed. Current study was also evaluated with a Computer Aided Detection (CAD) system. COMPARISON: Comparison is made to exams dated: 06/20/2012 mammogram, 06/23/2011 ultrasound biopsy, 06/16 mammogram, 06/17/2011 ultrasound, 06/15/2011 mammogram, and 06/12/2010 mammogram - [facility]. BREAST COMPOSITION: The tissue of both breasts is heterogeneously dense, which may obscure small mas ses. FINDINGS: There is a stable metallic biopsy marker in the 12:00 left breast. No obvious new mass, ar chitectural distortion, asymmetry or suspicious microcalcifications identified. IMPRESSION: ACR BI-RADS CATEGORY 1: NEGATIVE There is no mammographic evidence of malignancy. A 1 year screening mammogram is recommended. The pa tient will receive written notification of the results. Approximately 10% of breast cancers are not detected with mammography. A negative mammographic report should not delay biopsy if a clinically suggestive mass is present. Guerline Vergara M.D. ay/:07/12/2017 15:24:53 Pets Salesperson: Marilyn Urbina, [facility] letter sent: Normal 1/2 BI-RADS Code: ACR BI-RADS Category 1: Negative
== END | disposition home or self-care (01) ==
LOC: C.MAMM 13:22
PROVIDERS: ATTEND Internal Medicine
DX: Z12.31 Encounter for screening mammogram for malignant neoplasm of breast (principal)

== ENCOUNTER 2017-08-24 21:20 | Emergency (ER) | payer BC ==
[~2017-08-24] VITALS: Ht 172.7 cm; Wt 83.3 kg
[2017-08-24 21:27] VITALS: TEMP 36.7; Ht 172.7 cm; Wt 83.3 kg
[2017-08-24] MEDS ORDERED: ONDANSETRON 4MG OD TAB PO STA (21:38)
[2017-08-24] MEDS ORDERED: MoRPHine SULFATE 10 MG/ML CARP/VIAL IM STA (21:38)
[2017-08-24] MEDS ORDERED: DEXAMETHASONE SOD INJ 4 MG/ML 5 ML VIAL IM STA (21:38)
[2017-08-24] MEDS ORDERED: DEXAMETHASONE SOD INJ 10 MG/ML VIAL ONE (21:44)
--- NOTE | 2017-08-24 21:58 | EMERGENCY ROOM VISIT NOTE ---
History First contact with patient: 21:30 Chief Complaint: HEADACHE Stated Complaint: HEADACHE History of Present Illness The patient is a 62 year old female who presents to the Emergency Room with complaints of acute on chronic neck pain and tension headache for the past day and a half. Patient has a history of chronic neck pain. Patient states she has been having more stress lately and has caused her to have acute exacerbation of her neck pain described as aching, ranging in severity 8 out of 10 similar to prior. Movement makes it worse nothing makes it better. Patient states her neck pain gets bad it caused her to have a headache. Patient states she is a history of this and this feels similar. Patient had prior neck surgery by Dr. Tabares. Patient denies neck stiffness, fever, chills, localized weakness, vision problems, balance problems, chest pain, dyspnea or any other medical complaints. Patient states she is on chronic narcotics and is managed by Dr. Lopez. Review of Systems An 10 system review of systems was completed with positives and pertinent negatives listed in the HPI. Past Medical/Surgical History Medical Problems: (1) CHRONIC PAIN SYNDROME (2) HYPOTHYROIDISM NOS (3) MIGRAINE W AURA W/O INTRACT MGRN W/O STATUS MIGRAINOSUS Family History Diabetes mellitus Heart disease Hypertension Social History Smoking Status: Current Every Day Smoker Alcohol Use: none Drug Use: none Marital Status: Housing Status: lives alone Occupation Status: retired Current/Historical Medications Scheduled Atorvastatin (Lipitor), 20 MG PO DAILY Estradiol (Estradiol), 1 PATCH TD WK Levothyroxine Sodium (Levothyroxine Sodium), 150 MCG PO QAM Morphine Sulfate (Morphine Sulfate Er), 30 MG PO TID Naproxen (Naprosyn), 250 MG PO NEEDED Pregabalin (Lyrica), 50 MG PO BID Venlafaxine Hcl (Effexor Extended Rel), 300 MG PO QAM Scheduled PRN Cyclobenzaprine Hcl (Flexeril), 5 MG PO HS PRN for Muscle Spasms Oxycodone Hcl (Oxycodone Hcl), 7.5 MG PO Q3-4 HRS PRN for Breakthrough Pain Physical Exam Vital Signs Date Time Temp Pulse Resp B/P (MAP) Pulse Ox O2 Delivery O2 Flow Rate FiO2 18 21:27 36.7 88 18 130/76 96 Room Air Physical Exam VITALS: Vitals are noted on the nurse's note and reviewed by myself. Vital signs stable. GENERAL: Pleasant female, in no acute distress, nondiaphoretic, well-developed well-nourished. SKIN: The skin was without rashes, erythema, edema, or bruising. There is no tenting of the skin. Capillary reflex less than 2 seconds. HEAD: Normocephalic atraumatic. EARS: External auditory canals clear, tympanic membranes pearly carr without erythema or effusion bilaterally. EYES: Pupils equal round and reactive to light and accommodation. Conjunctivae without injection, sclerae without icterus. Extraocular movements intact. NOSE: Patent, turbinates without inflammation or discharge. No sinus tenderness. MOUTH: Mucous membranes moist. Pharynx without erythema or exudate. Uvula midline. Airway patent. Tongue does not deviate. NECK: Supple without nuchal rigidity. No lymphadenopathy. No thyromegaly. Cervical spine is nontender. No JVD. HEART: Regular rate and rhythm without murmurs gallops or rubs. LUNGS: Clear to auscultation bilaterally without wheezes, rales or rhonchi. No retractions or accessory muscle use. ABDOMEN: Positive bowel sounds x 4. Normal tympanic percussion. Soft, nontender, without masses or organomegaly. Darby sign negative. No guarding or rebound tenderness. No CVA tenderness MUSCULOSKELETAL: No muscle atrophy, erythema, or edema noted. NEURO: Patient was alert and oriented to person place and time. Normal sensation to light and sharp touch. No focal neurological deficits. Cranial nerves II through XII grossly intact. Cerebellar exam intact Medical Decision & Procedures Medications Administered Medications (Trade) Dose Ordered Sig/Aurora Route Start Time Stop Time Status Last Admin Dose Admin Morphine Sulfate (MoRPHine SULFATE INJ) 10 mg NOW STAT IM 08/24/17 21:38 08/24/17 21:40 DC 08/24/17 21:48 10 MG Ondansetron HCl (Zofran Odt) 4 mg NOW STAT PO 08/24/17 21:38 08/24/17 21:40 DC 08/24/17 21:47 4 MG Dexamethasone Sodium Phosphate (Decadron Inj) 10 mg STK-MED ONCE .ROUTE 08/24/17 21:44 08/24/17 21:45 DC 08/24/17 21:48 10 MG ED Course Prior records/ancillary studies reviewed. Triage Nursing notes reviewed. The patient's history was concerning for acute on chronic neck pain and headache. Differential diagnosis: Etiologies such as acute on chronic neck pain, migraine headache, meningitis, sinusitis, CO exposure, ICH, SAH, infection, tumor, headache, sinus thrombosis, arterial dissection, as well as others were entertained. Physical examination findings: As above. Non-focal. ER treatment provided: Morphine, Decadron and Zofran On reassessment the patient felt better. Diagnostics interpreted by me: Deferred This appears to be consistent with acute on chronic neck pain with tension headache. Patient has a long-standing history of this. Symptoms are similar. Patient was neurovascularly and neurologically intact. She was well-appearing. Patient was advised to follow-up family can a few days here in the ER sooner for headache, fevers, neck stiffness, weakness, worsening signs or symptoms or as needed. Patient ambulated out of the ER without difficulty. By the evaluation outlined above emergent etiologies such as meningitis, sinusitis, CO exposure, ICH, SAH, infection, temporal arteritis, tumor, sinus thrombosis, arterial dissection, as well as others were deemed relatively unlikely. The pt informed about the findings as listed above. All questions were answered and pleased with the treatment. Return instructions were outlined and the patient was discharged in stable condition. Referral: The patient was referred back to their primary care physician for follow-up in 2 to 3 days for a recheck of the current condition. The chart was completed utilizing [employer] Speech voice recognition software. Grammatical errors, random word insertions, pronoun errors, and incomplete sentences are an occassional consequence of this system due to software limitations, ambient noise, and hardware issues. Any formal questions or concerns about the content, text, or information contained within the body of this dictation should be directly addressed to the physician pastry assistant for clarification. Medical Decision As above [place] Drug Monitoring Program Search Results: patient reviewed within database, see additional documentation (Patient is on chronic narcotics and verified this) Medication Reconcilliation Current Medication List: was personally reviewed by me Blood Pressure Screening Patient's blood pressure: Normal blood pressure Impression Primary Impression: Tension headache Additional Impression: acute on chronic neck pain Departure Information Dispostion Home / Self-Care Condition GOOD Forms HOME CARE DOCUMENTATION FORM, IMPORTANT VISIT INFORMATION Patient Instructions My [employer] Additional Instructions DO NOT drive, drink alcohol, operate machinery, or perform dangerous activities today. You were given medications in the ER that can affect your ability to safely function or operate a vehicle. Rest today in a quiet, peaceful, dark environment and get a full 8-10 hrs of sleep tonight. Avoid loud noises, smoke/smoking, alcohol, bright lights, stress, or physical exertion today to minimize the chance the headache may return. Continue current medications. Ibuprofen(Motrin, Advil) may be used for fever or pain. Use 600mg every six hours as needed. Take with food. Avoid using more than 2400mg in a 24 hour period. Do not use 2400mg per day for more than three consecutive days without physician direction. Prolonged inappropriate use can lead to stomach upset or ulcers. (AND/OR) Acetaminophen(Tylenol) may be used for fever or pain. Use 1000mg every six hours as needed. Avoid using more than 3000mg in a 24 hour period. Return to the ER for passing out, worsening headache, vision problems, neck stiffness/pain, fevers, vomiting, worsening of your condition, or as needed. Follow up with your primary physician and/or a neurologist in 2-3 days for a recheck of your current condition. Problem Qualifiers
[2017-08-24 22:10] VITALS: BP 147/83; PULSE 84; O2SAT 96
== END 2017-08-24 22:10 | disposition home or self-care (01) ==
LOC: C.EDB 21:21 → C.EDA 22:10
DX: G44.209 Tension-type headache, unspecified, not intractable (principal); G89.29 Other chronic pain; M54.2 Cervicalgia; E03.9 Hypothyroidism, unspecified; F17.200 Nicotine dependence, unspecified, uncomplicated; Z83.3 Family history of diabetes mellitus; Z82.49 Family history of ischemic heart disease and other diseases of the circulatory system; Z79.899 Other long term (current) drug therapy

== ENCOUNTER → 2017-11-09 | Outpatient (CLI) | payer BC ==
[~2017-11-09] MED LIST changes: +ASPI-435 PO; -CLMTP5 TD; -LYR50 PO
[2017-11-09 17:08] LABS: BLOOD UREA NITROGEN 19 mg/dl (7-18)
== END | disposition home or self-care (01) ==
LOC: C.LABBC 15:11
PROVIDERS: ATTEND Anesthesiology
DX: Z04.9 Encounter for examination and observation for unspecified reason (principal)

== ENCOUNTER → 2017-11-10 | Outpatient (CLI) | payer BC ==
[~2017-11-10] MED LIST changes: +GADAVIST IV PRN
--- NOTE | 2017-11-10 11:56 | DIAGNOSTIC IMAGING REPORT ---
CERVICAL SPINE COMBO HISTORY: Pain. Neuropathy. CERVICAL RADICULOPATHY LEFT WORSE THAN RIGHT TECHNIQUE: Multiplanar multisequence MRI of the cervical spine was performed both before and after the use of intravenous contrast. COMPARISON STUDY: 08/23/2007 FINDINGS: Findings consistent with an anterior cervical fusion C4-C6. Mild chronic bone marrow edematous change of C3 is noted. This is unchanged. C2-C3: No significant central canal or neural foraminal narrowing. C3-C4: Minimal broad-based disc bulge. No significant impact upon the cervical cord or neural foramina. C4-C5: No significant central canal or neural foraminal narrowing. C5-C6: No significant central canal or neural foraminal narrowing. C6-C7: Moderate broad-based disc herniation. Mild impact anterior aspect cervical cord. Moderate narrowing neuroforamina bilaterally. C7-T1: No significant central canal or neural foraminal narrowing. IMPRESSION: 1. Findings of an anterior fusion from C4 through C6. 2. Interval broad-based disc herniation C6-C7 with mild impact upon the cervical cord and moderate narrowing of the neuroforamina bilaterally. 3. Mild interval bulging disc C3-C4. The above report was generated using voice recognition software. It may contain grammatical, syntax or spelling errors. Electronically signed by: [place] Isbell M.D. 11/10/2017 11:55 AM Dictated Date/Time: 11/10/2017 11:45 AM
== END | disposition home or self-care (01) ==
LOC: C.MRIBC 10:03
PROVIDERS: ATTEND Anesthesiology
DX: M54.12 Radiculopathy, cervical region (principal)

== ENCOUNTER 2017-11-13 07:08 | Emergency (ER) | payer BC ==
[~2017-11-13] VITALS: Ht 172.7 cm; Wt 80.2 kg
[2017-11-13 07:17] VITALS: BP 135/81; PULSE 90; TEMP 36.7; O2SAT 97; Ht 172.7 cm; Wt 80.2 kg
[2017-11-13] MEDS ORDERED: MoRPHine SULFATE 10 MG/ML CARP/VIAL IM STA (07:27)
[2017-11-13] MEDS ORDERED: ONDANSETRON 4MG OD TAB PO STA (07:27)
[2017-11-13] MEDS ORDERED: ASPI-435 PO (07:29)
[2017-11-13] MEDS ORDERED: DEXAMETHASONE **PF** INJ 10 MG/ML VIAL IM ONE (07:30)
--- NOTE | 2017-11-13 07:36 | EMERGENCY ROOM VISIT NOTE ---
History First contact with patient: :20 Chief Complaint: ARM PAIN Stated Complaint: BILAT ARM PAIN X3 AND LIRA History of Present Illness The patient is a 62 year old female who presents to the Emergency Room with complaints of bilateral arm pain, tingling and numbness, along with a headache. The patient reports a prior history of neck problems, status post cervical surgery 2. She also reports a history of chronic migraines. She is currently under the management of Dr. Lima Valencia at the [facility]. The patient reports that Dr. Valencia has planned an epidural steroid injection pending results of an MRI that was just performed 3 days ago. She is also scheduled for Botox injections the middle of this month. She reports that she will need repeat neck surgery. The patient reports left greater than right upper extremity symptoms. She reports her typical generalized migraine headache that she also thinks is being exacerbated with the recent weather. She reports that her headache is similar to all prior, and not the worst headache of her life. She denies any other recent upper respiratory infections , head injury or risk of carbon monoxide exposure. She rates her overall discomfort an 8 out of 10. Review of Systems 10 system review was performed and was negative except for pertinent positives and negatives as indicated in history of present illness Past Medical/Surgical History Medical Problems: (1) CHRONIC PAIN SYNDROME (2) HYPOTHYROIDISM NOS (3) MIGRAINE W AURA W/O INTRACT MGRN W/O STATUS MIGRAINOSUS Family History Diabetes mellitus Heart disease Hypertension Social History Smoking Status: Current Every Day Smoker Alcohol Use: none Drug Use: none Marital Status: Housing Status: lives alone Occupation Status: retired Current/Historical Medications Scheduled Aspirin (Aspirin 81), 81 MG PO QAM Atorvastatin (Lipitor), 20 MG PO DAILY Levothyroxine Sodium (Levothyroxine Sodium), 150 MCG PO QAM Morphine Sulfate (Morphine Sulfate Er), 30 MG PO TID Naproxen (Naprosyn), 250 MG PO NEEDED Venlafaxine Hcl (Effexor Extended Rel), 300 MG PO QAM Scheduled PRN Cyclobenzaprine Hcl (Flexeril), 5 MG PO HS PRN for Muscle Spasms Oxycodone Hcl (Oxycodone Hcl), 7.5 MG PO Q3-4 HRS PRN for Breakthrough Pain Physical Exam Vital Signs Date Time Temp Pulse Resp B/P (MAP) Pulse Ox O2 Delivery O2 Flow Rate FiO2 11/13/17 07:17 36.7 90 18 135/81 97 Room Air Physical Exam CONSTITUTIONAL: Healthy and well nourished. Alert and oriented X 3 with positive affect. Patient appears in mild discomfort. HEENT: Normocephalic, atraumatic. Pupils equal, round and reactive. NECK: Range of motion worsens her headache and upper extremity symptoms. No nuchal rigidity noted. RESPIRATORY: Clear to auscultation bilaterally with no wheezing, crackles, rhonchi or stridor. CARDIOVASCULAR: Regular rate and rhythm with no murmurs, rubs or gallops. MUSCULOSKELETAL: Patient has no worsening upper extremity pain with range of motion of the shoulders. Equal handgrip bilaterally. INTEGUMENTARY: No rash or other significant dermatologic conditions noted. NEUROLOGIC: Cranial nerves II-XII grossly intact. No focal neurologic deficits noted. Medical Decision & Procedures ER Provider Diagnostic Interpretation: Patient's most recent MRI of 11/10/17 were personally reviewed by me. Radiologist report is as follows: CERVICAL SPINE COMBO HISTORY: Pain. Neuropathy. CERVICAL RADICULOPATHY LEFT WORSE THAN RIGHT TECHNIQUE: Multiplanar multisequence MRI of the cervical spine was performed both before and after the use of intravenous contrast. COMPARISON STUDY: 08/23/2007 FINDINGS: Findings consistent with an anterior cervical fusion C4-C6. Mild chronic bone marrow edematous change of C3 is noted. This is unchanged. C2-C3: No significant central canal or neural foraminal narrowing. C3-C4: Minimal broad-based disc bulge. No significant impact upon the cervical cord or neural foramina. C4-C5: No significant central canal or neural foraminal narrowing. C5-C6: No significant central canal or neural foraminal narrowing. C6-C7: Moderate broad-based disc herniation. Mild impact anterior aspect cervical cord. Moderate narrowing neuroforamina bilaterally. C7-T1: No significant central canal or neural foraminal narrowing. IMPRESSION: 1. Findings of an anterior fusion from C4 through C6. 2. Interval broad-based disc herniation C6-C7 with mild impact upon the cervical cord and moderate narrowing of the neuroforamina bilaterally. 3. Mild interval bulging disc C3-C4. ED Course Patient history and physical exam were performed. Nurse's notes were reviewed. Vital signs were reviewed and were normal. I did review the patient's MRI results, which are summarized in the previous Diagnostic Interpretation section. The patient does not have any concerning or emergent acute neurologic findings on today's exam. I suspect her chronic pain related to cervical radiculitis and headache. The patient was administered her typical morphine 10 mg and Decadron 10 mg IM, along with Zofran 4 mg ODT. The patient was encouraged to continue follow-up with Dr. Valencia for further management. She is welcome to return to the emergency department for any progressively worsening symptoms. The patient voiced understanding of all discharge instructions, was happy with plan of care, and rated her discomfort a 7 out of 10 at the time of discharge. Medical Decision Patient has a history of chronic headaches, and now is having an exacerbation of neck pain with bilateral C6-7 cervical radiculopathy. She has had a recent MRI that did not show any severe cord compression or obvious cord injury. Regarding her headache, her headache is similar to all prior. I do not suspect intracranial bleed, abscess, meningitis, CVA/TIA, thromboembolic event or carbon monoxide poisoning. I do not feel that further laboratory or imaging studies are warranted. Medication Reconcilliation Current Medication List: was personally reviewed by me Blood Pressure Screening Patient's blood pressure: Normal blood pressure Impression Primary Impression: Bilateral cervical radiculopathy Additional Impression: Headache Departure Information Referrals Jeremi Morrow D.O. Gilbert, Jennifer L., DO Forms HOME CARE DOCUMENTATION FORM, IMPORTANT VISIT INFORMATION Patient Instructions My [facility] Additional Instructions Continue follow-up with Dr. Valencia for further management. Problem Qualifiers Additional Impression: Headache Headache type: unspecified Headache chronicity pattern: chronic headache Intractability: not intractable Qualified Codes: R51 - Headache
[2017-11-13] MEDS ORDERED: ATOR-22 PO (10:34)
[2017-11-13] MEDS ORDERED: NAPR1TAB48 PO (10:34)
[2017-11-13] MEDS ORDERED: LEVO150T9 PO (13:49)
[2017-11-13] MEDS ORDERED: EFFSR150 PO (13:50)
[2017-11-13] MEDS ORDERED: MORP1TAB12 PO (13:50)
[2017-11-13] MEDS ORDERED: OXY/15 PO (13:50)
[2017-11-13] MEDS ORDERED: CYCL5TAB PO (14:57)
== END 2017-11-13 07:43 | disposition home or self-care (01) ==
LOC: C.EDB 07:10
DX: M54.12 Radiculopathy, cervical region (principal); R51 Headache; Z98.890 Other specified postprocedural states; G89.4 Chronic pain syndrome; E03.9 Hypothyroidism, unspecified; F17.210 Nicotine dependence, cigarettes, uncomplicated; Z83.3 Family history of diabetes mellitus; Z82.49 Family history of ischemic heart disease and other diseases of the circulatory system; Z79.82 Long term (current) use of aspirin; Z79.899 Other long term (current) drug therapy

== ENCOUNTER → 2017-11-24 | Outpatient (CLI) | payer BC ==
[~2017-11-24] MED LIST changes: -GADAVIST IV PRN
== END | disposition home or self-care (01) ==
LOC: C.LABBFT 12:51
PROVIDERS: ATTEND Internal Medicine
DX: E89.0 Postprocedural hypothyroidism (principal)

== ENCOUNTER 2017-12-06 12:44 | Emergency (ER) | payer BC ==
[~2017-12-06] VITALS: Ht 172.7 cm; Wt 77.5 kg
[2017-12-06 12:51] VITALS: TEMP 37; Ht 172.7 cm; Wt 77.5 kg
[2017-12-06] MEDS ORDERED: ONDANSETRON 4MG OD TAB PO STA (13:07)
[2017-12-06] MEDS ORDERED: MoRPHine SULFATE 10 MG/ML CARP/VIAL IM STA (13:07)
[2017-12-06] MEDS ORDERED: DEXAMETHASONE **PF** INJ 10 MG/ML VIAL IM ONE (13:15)
[2017-12-06] MEDS ORDERED: DEXAMETHASONE SOD INJ 10 MG/ML VIAL ONE (13:17)
[2017-12-06 13:26] VITALS: BP 137/86; PULSE 86; O2SAT 97
--- NOTE | 2017-12-06 17:15 | EMERGENCY ROOM VISIT NOTE ---
History First contact with patient: 13:01 Chief Complaint: HEADACHE Stated Complaint: LIRA 2 DAYS History of Present Illness The patient is a 62 year old female who presents to the Emergency Room with complaints of a headache for the past 2 days. Patient reports a history of headaches, and currently is following with Dr. Valencia at the pain clinic. She reports undergoing an epidural injection last Wednesday, and was warned that she would have worsening discomfort before she noticed any improvement. She reports that the headache is otherwise typical for her usual headache. She rates her discomfort an 8 out of 10. She denies any worsening neck pain, fever or chills. Review of Systems 10 system review was performed and was negative except for pertinent positives and negatives as indicated in history of present illness Past Medical/Surgical History Medical Problems: (1) CHRONIC PAIN SYNDROME (2) HYPOTHYROIDISM NOS (3) MIGRAINE W AURA W/O INTRACT MGRN W/O STATUS MIGRAINOSUS Family History Diabetes mellitus Heart disease Hypertension Social History Smoking Status: Current Every Day Smoker Alcohol Use: none Drug Use: none Marital Status: Housing Status: lives alone Occupation Status: retired Current/Historical Medications Scheduled Aspirin (Aspirin 81), 81 MG PO QAM Atorvastatin (Lipitor), 20 MG PO DAILY Levothyroxine Sodium (Levothyroxine Sodium), 150 MCG PO QAM Morphine Sulfate (Morphine Sulfate Er), 30 MG PO TID Venlafaxine Hcl (Effexor Extended Rel), 300 MG PO QAM Scheduled PRN Cyclobenzaprine Hcl (Flexeril), 5 MG PO HS PRN for Muscle Spasms Naproxen (Naprosyn), 250 MG PO UD PRN for PRN Oxycodone Hcl (Oxycodone Hcl), 7.5 MG PO Q3-4 HRS PRN for Breakthrough Pain Physical Exam Vital Signs Date Time Temp Pulse Resp B/P (MAP) Pulse Ox O2 Delivery O2 Flow Rate FiO2 12/06/17 13:26 86 18 137/86 97 12/06/17 12:51 37.0 92 18 137/81 98 Room Air Physical Exam CONSTITUTIONAL: Healthy and well nourished. Alert and oriented X 3 with positive affect. HEENT: Normocephalic, atraumatic. Pupils equal, round and reactive. No scleral icterus or conjunctival injection. NECK: Patient has mild discomfort with range of motion. No overriding skin erythema is noted. MUSCULOSKELETAL: Full range of motion of all joints without discomfort. No worsening pain with range of motion of the shoulders. INTEGUMENTARY: No rash or other significant dermatologic conditions noted. NEUROLOGIC: No focal neurologic deficits noted. No antalgic gait. Medical Decision & Procedures Medications Administered Medications (Trade) Dose Ordered Sig/Aurora Route Start Time Stop Time Status Last Admin Dose Admin Morphine Sulfate (MoRPHine SULFATE INJ) 10 mg NOW STAT IM 12/06/17 13:07 12/06/17 13:08 DC 12/06/17 13:22 10 MG Ondansetron HCl (Zofran Odt) 4 mg NOW STAT PO 12/06/17 13:07 12/06/17 13:08 DC 12/06/17 13:22 4 MG Dexamethasone Sodium Phosphate (Decadron Inj) 10 mg STK-MED ONCE .ROUTE 12/06/17 13:17 12/06/17 13:18 DC 12/06/17 13:23 10 MG ED Course Patient history and physical exam were performed. Nurse's notes were reviewed. Vital signs were reviewed and were normal. Patient is well-known to the emergency department with history of chronic headaches. The patient reports that this headache is no different than prior presentations. The patient was administered her usual morphine 10 mg and Decadron 10 mg IM, as well as Zofran 4 mg ODT. The patient was instructed to follow-up with the pain clinic as needed for further management, returning to the emergency department for any significantly worsening symptoms, including fever. The patient rated her discomfort a 6 out of 10 at the time of discharge. Medical Decision See previous section. The patient did recently have an epidural injection. Her headache appears to be similar to all prior headaches, therefore I do not suspect spinal abscess, hematoma, post epidural headache or other significant postinjection complications. Medication Reconcilliation Current Medication List: was personally reviewed by me Blood Pressure Screening Patient's blood pressure: Normal blood pressure Impression Primary Impression: Headache Departure Information Dispostion Home / Self-Care Referrals Britton Lopez M.D. (PCP) Lima Valencia, DO Forms HOME CARE DOCUMENTATION FORM, IMPORTANT VISIT INFORMATION Patient Instructions My [facility] Additional Instructions Follow-up with Dr. Valencia for further management Problem Qualifiers Primary Impression: Headache
== END 2017-12-06 13:27 | disposition home or self-care (01) ==
LOC: C.EDB 12:46 → C.EDD 13:27
DX: R51 Headache (principal); G89.4 Chronic pain syndrome; Z83.3 Family history of diabetes mellitus; Z82.49 Family history of ischemic heart disease and other diseases of the circulatory system; F17.210 Nicotine dependence, cigarettes, uncomplicated; Z79.82 Long term (current) use of aspirin; Z79.899 Other long term (current) drug therapy